=== PATIENT | female | born 1975 | race Caucasian/White ===

== ENCOUNTER 2016-10-30 03:23 | Emergency (ER) | payer MEDICAID ==
[~2016-10-30] VITALS: Ht 170.2 cm; Wt 74.7 kg
[~2016-10-30 03:23] MED LIST: ARIP2TAB PO; ARIP30TA PO; DIAZ2TAB PO; HYDR-3240 PO; LORA0.5T PO; SERT25TA PO; TOPI25CA5 PO; ZIPR20CA2 PO
[2016-10-30] MEDS ORDERED: HYDROmorphone 1 MG/ML, 1ML ONE (04:28)
[2016-10-30] MEDS ORDERED: ONDANSETRON 2MG/ML, 2ML ONE (04:29)
[2016-10-30] MEDS ORDERED: MORPHINE SULFATE 4 MG/ML, 1ML IVPush PRN (04:30)
[2016-10-30] MEDS ORDERED: ONDANSETRON 2MG/ML, 2ML IVPush ONE (04:30)
[2016-10-30] MEDS ORDERED: SODIUM CHLORIDE 0.9% 1,000ML IVBOLUS ONE (04:30)
[2016-10-30 04:40] LABS: HEMOGLOBIN 14.7 g/dL (11.7-16.4)
[2016-10-30 04:49] LABS: BLOOD UREA NITROGEN 16 mg/dL (7-18)
[2016-10-30 04:53] LABS: ASPARTATE AMINO TRANSFERASE 11 U/L (15-37)
[2016-10-30] MEDS ORDERED: HYDROmorphone 1 MG/ML, 1ML IM ONE (05:00)
[2016-10-30 05:28] LABS: DAU SCREEN DISCLAIMER
[2016-10-30] MEDS ORDERED: OXYcodone/APAP 5/325MG TABLET ONE (05:31)
[2016-10-30] MEDS ORDERED: ONDANSETRON ODT 4 MG ONE (05:33)
[2016-10-30 05:38] LABS: HCG UR OBC PASS
[2016-10-30 05:47] VITALS: BP 112/67
[2016-10-30] MEDS ORDERED: ONDANSETRON ODT 4 MG PO ONE (06:30)
[2016-10-30] MEDS ORDERED: OXYcodone/APAP 5/325MG TABLET PO ONE (06:30)
[2016-11-02] MEDS ORDERED: Oxycodone Hcl/Acetaminophen PO (09:22)
[2016-11-02] MEDS ORDERED: ONDA4TAB10 PO (09:22)
[2016-11-02] MEDS ORDERED: SULF1TAB24 PO (12:11)
== END 2016-10-30 06:19 | disposition home or self-care (01) ==
LOC: ED 04:45
DX: K80.20 Calculus of gallbladder without cholecystitis without obstruction (principal); K80.50 Calculus of bile duct without cholangitis or cholecystitis without obstruction; F12.10 Cannabis abuse, uncomplicated; E11.9 Type 2 diabetes mellitus without complications; Z98.890 Other specified postprocedural states
CPT/HCPCS: 36415; 76700; 80053; 80307; 81001; 81025; 83690; 85025; 87086; 96372; 96374; 99285; J1170; J2405; Q0162

== ENCOUNTER 2016-12-07 09:46 | Emergency (ER) | payer MEDICAID ==
[~2016-12-07] VITALS: Ht 165.1 cm; Wt 75.8 kg
[~2016-12-07 09:46] MED LIST changes: +ONDA4TAB10 PO; +Oxycodone Hcl/Acetaminophen PO; +SULF1TAB24 PO
[2016-12-07] MEDS ORDERED: SODIUM CHLORIDE 0.9% 1,000 ML IV ONE (11:13)
[2016-12-07] MEDS ORDERED: ONDANSETRON 2MG/ML, 2ML IVPush ONE (11:30)
[2016-12-07] MEDS ORDERED: SODIUM CHLORIDE FLUSH 10ML SYR IVF ONE (11:30)
[2016-12-07] MEDS ORDERED: HYDROmorphone 1 MG/ML, 1ML ONE ×2 (11:39→12:18)
[2016-12-07] MEDS ORDERED: ONDANSETRON 2MG/ML, 2ML ONE (11:39)
[2016-12-07] MEDS: HYDROmorphone 1 MG/ML, 1ML IVPush PRN ×2 (11:47→12:20)
[2016-12-07 11:49] LABS: ASPARTATE AMINO TRANSFERASE 5 U/L (15-37); BLOOD UREA NITROGEN 12 mg/dL (7-18)
[2016-12-07 12:21] VITALS: BP 111/73
[2016-12-07] MEDS ORDERED: OMNIPAQUE 350 MG/ML, 100ML BOTTLE ONE (12:50)
== END 2016-12-07 13:45 | disposition home or self-care (01) ==
LOC: ED 13:43
DX: N30.00 Acute cystitis without hematuria (principal); E11.9 Type 2 diabetes mellitus without complications; Z90.49 Acquired absence of other specified parts of digestive tract; Z88.0 Allergy status to penicillin; Z88.8 Allergy status to other drugs, medicaments and biological substances
CPT/HCPCS: 36415; 74177; 80053; 81001; 83690; 85025; 87086; 96361; 96374; 96375; 96376; 99285; J1170; J2405; J7030; Q9967

== ENCOUNTER 2017-02-05 18:30 | Emergency (ER) | payer MEDICAID ==
[~2017-02-05] VITALS: Ht 167.6 cm; Wt 72.0 kg
[2017-02-05] MEDS ORDERED: ACETAMINOPHEN 325 MG TABLET ONE (18:59)
[2017-02-05] MEDS ORDERED: ONDANSETRON ODT 4 MG ONE (18:59)
[2017-02-05] MEDS ORDERED: ONDANSETRON ODT 4 MG PO ONE (19:00)
[2017-02-05] MEDS ORDERED: ACETAMINOPHEN 325 MG TABLET PO ONE (19:00)
[2017-02-05] MEDS ORDERED: PLEASE ENTER HEIGHT AND WEIGHT MC SCH (19:00)
[2017-02-05 19:02] LABS: BLOOD UREA NITROGEN 19 mg/dL (7-18)
[2017-02-05] MEDS ORDERED: OXYC60TA8 PO (19:09)
[2017-02-05] MEDS ORDERED: ZIPR40CA2 PO (19:10)
[2017-02-05 19:16] LABS: DAU SCREEN DISCLAIMER
[2017-02-05] MEDS ORDERED: CEFTRIAXONE 1,000 MG ONE (20:25)
[2017-02-05 20:30] VITALS: BP 113/67
[2017-02-05] MEDS ORDERED: CEFTRIAXONE 1,000 MG IM ONE (20:30)
== END 2017-02-05 21:20 | disposition home or self-care (01) ==
LOC: ED 20:50
DX: N30.90 Cystitis, unspecified without hematuria (principal); N20.0 Calculus of kidney; E11.9 Type 2 diabetes mellitus without complications; G40.909 Epilepsy, unspecified, not intractable, without status epilepticus
CPT/HCPCS: 36415; 74000; 76770; 80048; 80307; 81001; 82040; 84703; 85025; 87086; 96372; 99285; J0696; Q0162

== ENCOUNTER 2017-02-12 22:14 | Emergency (ER) | payer MEDICAID ==
[~2017-02-12] VITALS: Ht 162.6 cm; Wt 68.0 kg
[~2017-02-12 22:14] MED LIST changes: +OXYC60TA8 PO; +ZIPR40CA2 PO
[2017-02-12 22:18] VITALS: BP 112/67
[2017-02-12] MEDS ORDERED: ONDANSETRON 2MG/ML, 2ML IVPush ONE (22:30)
[2017-02-12] MEDS ORDERED: MORPHINE SULFATE 4 MG/ML, 1ML IVPush PRN (22:30)
[2017-02-12 22:49] LABS: BLOOD UREA NITROGEN 18 mg/dL (7-18)
[2017-02-12 22:53] LABS: IS PT STATUS REG ER OR PRE ER? YES
[2017-02-12] MEDS ORDERED: COLCHICINE 0.6 MG TABLET PO ONE (23:00)
[2017-02-12] MEDS ORDERED: OXYcodone/APAP 5/325MG TABLET PO ONE (23:00)
[2017-02-12] MEDS ORDERED: OXYcodone/APAP 5/325MG TABLET ONE (23:02)
== END 2017-02-13 00:10 | disposition home or self-care (01) ==
LOC: ED 23:58
DX: R09.1 Pleurisy (principal); E11.9 Type 2 diabetes mellitus without complications; I25.10 Atherosclerotic heart disease of native coronary artery without angina pectoris; Z86.718 Personal history of other venous thrombosis and embolism; Z90.49 Acquired absence of other specified parts of digestive tract
CPT/HCPCS: 36415; 71020; 80048; 82040; 84484; 84703; 85025; 85379; 93005

== ENCOUNTER 2017-02-17 18:32 | Emergency (ER) | payer MEDICAID ==
[~2017-02-17] VITALS: Ht 167.6 cm; Wt 75.1 kg
[2017-02-17 18:35] VITALS: BP 99/63
== END 2017-02-17 19:16 | disposition home or self-care (01) ==
LOC: ED 19:10
DX: R07.0 Pain in throat (principal); Z88.0 Allergy status to penicillin; G40.909 Epilepsy, unspecified, not intractable, without status epilepticus; E11.9 Type 2 diabetes mellitus without complications
CPT/HCPCS: 99283

== ENCOUNTER 2017-04-13 15:25 | Emergency (ER) | payer MEDICAID ==
[~2017-04-13] VITALS: Ht 170.2 cm; Wt 75.0 kg
[~2017-04-13 15:25] MED LIST changes: -ARIP2TAB PO; +ARIP2TAB2 PO; -ARIP30TA PO; +ARIP30TA4 PO
[2017-04-13] MEDS ORDERED: METHOCARBAMOL 750 MG TABLET ONE (15:59)
[2017-04-13] MEDS ORDERED: HYDROcodone/APAP 5/325 TABLET ONE (15:59)
[2017-04-13] MEDS ORDERED: HYDROcodone/APAP 5/325 TABLET PO ONE (16:00)
[2017-04-13] MEDS ORDERED: METHOCARBAMOL 750 MG TABLET PO ONE (16:00)
[2017-04-13 17:17] LABS: HEMATOCRIT 42.9 % (34.6-47.8); HEMOGLOBIN 14.3 g/dL (11.7-16.4); WHITE BLOOD COUNT 9.8 x10^3/uL (3.4-10)
[2017-04-13 17:21] LABS: PATH.CAST-FLAG NOT PRESENT; SPERM-FLAG NOT PRESENT; SRC-FLAG NOT PRESENT; XTAL-FLAG NOT PRESENT; YLC-FLAG NOT PRESENT
[2017-04-13 17:27] LABS: BLOOD UREA NITROGEN 12 mg/dL (7-18)
[2017-04-13 18:25] VITALS: BP 120/80
== END 2017-04-13 19:30 | disposition home or self-care (01) ==
LOC: ED 17:38
DX: N30.01 Acute cystitis with hematuria (principal); E11.9 Type 2 diabetes mellitus without complications; F31.9 Bipolar disorder, unspecified; Z90.49 Acquired absence of other specified parts of digestive tract; Z88.0 Allergy status to penicillin; Z88.6 Allergy status to analgesic agent
CPT/HCPCS: 36415; 72110; 80048; 81001; 85025; 87086; 99285

== ENCOUNTER 2017-05-18 17:51 | Emergency (ER) | payer MEDICAID ==
[~2017-05-18] VITALS: Ht 170.2 cm; Wt 78.2 kg
[2017-05-18] MEDS ORDERED: TRAZ100T15 PO (18:15)
[2017-05-18] MEDS ORDERED: TOPI25CA5 PO (18:15)
[2017-05-18] MEDS ORDERED: GABA-827 PO (18:15)
[2017-05-18 19:52] VITALS: BP 101/51
[2017-05-18] MEDS ORDERED: ACETAMINOPHEN 325 MG TABLET ONE (20:16)
[2017-05-18] MEDS ORDERED: ACETAMINOPHEN 325 MG TABLET PO ONE (20:30)
== END 2017-05-18 20:37 | disposition home or self-care (01) ==
LOC: ED 19:00
DX: M25.521 Pain in right elbow (principal); F15.20 Other stimulant dependence, uncomplicated; G40.909 Epilepsy, unspecified, not intractable, without status epilepticus; F31.9 Bipolar disorder, unspecified
CPT/HCPCS: 82962; 99284

== ENCOUNTER 2017-05-20 13:56 | Inpatient (IN) | payer MEDICAID ==
[~2017-05-20] VITALS: Ht 162.6 cm; Wt 81.0 kg
[~2017-05-20 13:56] MED LIST changes: +GABA-827 PO; +TRAZ100T15 PO
[2017-05-20] MEDS ORDERED: CEFTRIAXONE PMX 1GM/50ML 50 ML IVPB ONE (14:30)
[2017-05-20] MEDS ORDERED: VANCOMYCIN PER PHARMACY MC ONE (14:30)
[2017-05-20] MEDS ORDERED: MORPHINE SULFATE 4 MG/ML, 1ML IVPush PRN (14:30)
[2017-05-20] MEDS ORDERED: SODIUM CHLORIDE 0.9% 1,000ML IVBOLUS ONE ×2 (14:30→19:00)
[2017-05-20] MEDS ORDERED: SODIUM CHLORIDE FLUSH 10ML SYR IVF ONE (14:30)
[2017-05-20] MEDS ORDERED: ACETAMINOPHEN 500 MG TABLET PO ONE (14:30)
[2017-05-20] MEDS ORDERED: VANCOMYCIN 1,500 MG in SODIUM CHLORIDE 0.9% 250 ML IV ONE (15:00)
[2017-05-20 15:47] LABS: HEMATOCRIT 43.8 % (34.6-47.8); HEMOGLOBIN 14.6 g/dL (11.7-16.4); WHITE BLOOD COUNT 10.4 x10^3/uL (3.4-10)
[2017-05-20] MEDS ORDERED: ACETAMINOPHEN 500 MG TABLET ONE (15:48)
[2017-05-20] MEDS ORDERED: CEFTRIAXONE PMX 1GM/50ML 50 ML ONE (15:48)
[2017-05-20 15:55] LABS: ASPARTATE AMINO TRANSFERASE 23 U/L (15-37); BLOOD UREA NITROGEN 15 mg/dL (7-18)
[2017-05-20] MEDS ORDERED: ONDANSETRON 2MG/ML, 2ML ONE (16:02)
[2017-05-20] MEDS ORDERED: morphine SULFATE 10 MG/ML, 1ML ONE ×2 (16:02→18:53)
[2017-05-20] MEDS ORDERED: ONDANSETRON 2MG/ML, 2ML IVPush ONE (16:30)
[2017-05-20] MEDS ORDERED: OMNIPAQUE 350 MG/ML, 100ML BOTTLE ONE (18:26)
[2017-05-20] MEDS ORDERED: morphine SULFATE 10 MG/ML, 1ML IVPush ONE (19:00)
[2017-05-20] MEDS ORDERED: VANCOMYCIN PER PHARMACY MC SCH (19:30)
[2017-05-20] MEDS ORDERED: ACETAMINOPHEN 325 MG TABLET PO PRN (19:30)
[2017-05-20] MEDS ORDERED: hydrALAzine 20 MG/ML, 1ML IVPush PRN (19:30)
[2017-05-20] MEDS ORDERED: PHARMACOKINETIC MONITORING MC PRN (21:00)
[2017-05-20] MEDS ORDERED: PHARMACOKINETIC CONSULTATION MC ONE (21:00)
[2017-05-20 21:33] VITALS: BP 112/76
[2017-05-20] MEDS ORDERED: HYDROmorphone 1 MG/ML, 1ML ONE (22:14)
[2017-05-20] MEDS: SODIUM CHLORIDE FLUSH 10ML SYR IVF SCH (22:20)
[2017-05-20] MEDS: HYDROmorphone 2 MG/ML, 1ML IVPush PRN (22:21)
[2017-05-20] MEDS: TRAZODONE 100MG TABLET PO SCH (22:21)
[2017-05-20] MEDS: ZIPRASIDONE 40MG CAPSULE PO SCH (22:22)
[2017-05-20] MEDS: ENOXAPARIN 40 MG/0.4 ML SQ SCH (22:22)
[2017-05-21 02:03] VITALS: BP 95/62
[2017-05-21] MEDS: VANCOMYCIN 1,500 MG in SODIUM CHLORIDE 0.9% 250 ML IV SCH ×2 (05:02→17:13)
[2017-05-21] MEDS ORDERED: HYDROmorphone 1 MG/ML, 1ML ONE ×3 (05:15→19:48)
[2017-05-21] MEDS: HYDROmorphone 2 MG/ML, 1ML IVPush PRN ×5 (05:19→21:45)
[2017-05-21 07:10] LABS: HEMATOCRIT 33.6 % (34.6-47.8); HEMOGLOBIN 11.3 g/dL (11.7-16.4); WHITE BLOOD COUNT 5.3 x10^3/uL (3.4-10)
[2017-05-21 07:13] LABS: BLOOD UREA NITROGEN 8 mg/dL (7-18)
[2017-05-21 08:00] VITALS: BP 101/67
[2017-05-21] MEDS: PANTOPRAZOLE 40 MG IV IVPush SCH (08:31)
[2017-05-21] MEDS: SODIUM CHLORIDE FLUSH 10ML SYR IVF SCH ×2 (08:32→21:46)
[2017-05-21] MEDS: ZIPRASIDONE 40MG CAPSULE PO SCH ×2 (08:32→21:44)
[2017-05-21 15:12] VITALS: BP 89/60
[2017-05-21] MEDS ORDERED: TOPI25CA PO (19:03)
[2017-05-21 20:00] VITALS: BP 97/64
[2017-05-21] MEDS: TOPIRAMATE 25 MG TABLET PO SCH (21:44)
[2017-05-21] MEDS: TRAZODONE 100MG TABLET PO SCH (21:44)
[2017-05-21] MEDS: ENOXAPARIN 40 MG/0.4 ML SQ SCH (21:46)
[2017-05-21] MEDS: ONDANSETRON 2MG/ML, 2ML IVPush PRN (21:52)
[2017-05-22] MEDS ORDERED: HYDROmorphone 1 MG/ML, 1ML ONE ×6 (01:53→21:52)
[2017-05-22] MEDS: HYDROmorphone 2 MG/ML, 1ML IVPush PRN ×6 (01:58→22:11)
[2017-05-22 02:00] VITALS: BP 110/72
[2017-05-22] MEDS: VANCOMYCIN 1,500 MG in SODIUM CHLORIDE 0.9% 250 ML IV SCH (05:03)
[2017-05-22 05:36] LABS: BLOOD UREA NITROGEN 5 mg/dL (7-18)
[2017-05-22 05:42] LABS: HEMATOCRIT 33.8 % (34.6-47.8); HEMOGLOBIN 11.4 g/dL (11.7-16.4); WHITE BLOOD COUNT 8.1 x10^3/uL (3.4-10)
[2017-05-22 08:11] VITALS: BP 88/59
[2017-05-22 09:37] VITALS: BP 97/63
[2017-05-22] MEDS: PANTOPRAZOLE 40 MG IV IVPush SCH (10:10)
[2017-05-22] MEDS: SODIUM CHLORIDE FLUSH 10ML SYR IVF SCH ×2 (10:10→21:56)
[2017-05-22] MEDS: TOPIRAMATE 25 MG TABLET PO SCH ×2 (10:11→21:56)
[2017-05-22] MEDS: ZIPRASIDONE 40MG CAPSULE PO SCH ×2 (10:11→21:56)
[2017-05-22] MEDS: ARIPIPRAZOLE 15 MG TABLET PO SCH (10:11)
[2017-05-22] MEDS: CEFTAROLINE 600 MG in SODIUM CHLORIDE 0.9% 100 ML IV SCH ×2 (11:37→23:39)
[2017-05-22] MEDS: METRONIDAZOLE PMX 500MG/100ML 100 ML IV SCH ×2 (14:58→22:00)
[2017-05-22] MEDS: ONDANSETRON 2MG/ML, 2ML IVPush PRN (14:58)
[2017-05-22 18:10] VITALS: BP 94/61
[2017-05-22 19:53] VITALS: BP 97/59
[2017-05-22] MEDS: ENOXAPARIN 40 MG/0.4 ML SQ SCH (21:56)
[2017-05-22] MEDS: TRAZODONE 100MG TABLET PO SCH (21:56)
[2017-05-23] MEDS ORDERED: HYDROmorphone 1 MG/ML, 1ML ONE ×6 (01:46→22:15)
[2017-05-23] MEDS: LORazepam 2 MG/ML, 1ML IVPush PRN ×2 (01:53→05:47)
[2017-05-23] MEDS: HYDROmorphone 2 MG/ML, 1ML IVPush PRN ×5 (02:11→22:23)
[2017-05-23 02:18] VITALS: BP 92/59
[2017-05-23] MEDS: METRONIDAZOLE PMX 500MG/100ML 100 ML IV SCH ×2 (05:48→17:08)
[2017-05-23] MEDS: PANTOPRAZOLE 40 MG IV IVPush SCH (07:47)
[2017-05-23] MEDS: SODIUM CHLORIDE FLUSH 10ML SYR IVF SCH ×2 (07:47→22:28)
[2017-05-23] MEDS: TOPIRAMATE 25 MG TABLET PO SCH ×2 (07:48→22:20)
[2017-05-23] MEDS: ARIPIPRAZOLE 15 MG TABLET PO SCH (07:48)
[2017-05-23] MEDS: ZIPRASIDONE 40MG CAPSULE PO SCH ×2 (07:48→22:20)
[2017-05-23 08:06] VITALS: BP 102/70
[2017-05-23] MEDS: CEFTAROLINE 600 MG in SODIUM CHLORIDE 0.9% 100 ML IV SCH ×2 (11:27→14:20)
[2017-05-23 13:59] VITALS: BP 91/56
[2017-05-23 19:09] VITALS: BP 104/69
[2017-05-23] MEDS: ENOXAPARIN 40 MG/0.4 ML SQ SCH (21:00)
[2017-05-23] MEDS: TRAZODONE 100MG TABLET PO SCH (22:20)
[2017-05-24] MEDS: METRONIDAZOLE PMX 500MG/100ML 100 ML IV SCH ×3 (01:10→17:35)
[2017-05-24] MEDS ORDERED: HYDROmorphone 1 MG/ML, 1ML ONE ×2 (02:28→08:51)
[2017-05-24] MEDS: HYDROmorphone 2 MG/ML, 1ML IVPush PRN ×4 (02:33→17:34)
[2017-05-24] MEDS: CEFTAROLINE 600 MG in SODIUM CHLORIDE 0.9% 100 ML IV SCH ×2 (02:34→15:39)
[2017-05-24 02:53] VITALS: BP 82/53
[2017-05-24 03:21] VITALS: BP 108/69
[2017-05-24 08:34] VITALS: BP 98/68
[2017-05-24] MEDS: SODIUM CHLORIDE FLUSH 10ML SYR IVF SCH ×2 (09:00→21:44)
[2017-05-24] MEDS: PANTOPRAZOLE 40 MG IV IVPush SCH (09:12)
[2017-05-24] MEDS: ARIPIPRAZOLE 15 MG TABLET PO SCH (09:18)
[2017-05-24] MEDS: ZIPRASIDONE 40MG CAPSULE PO SCH ×2 (09:20→21:44)
[2017-05-24] MEDS: TOPIRAMATE 25 MG TABLET PO SCH ×2 (09:22→21:43)
[2017-05-24 14:00] VITALS: BP 88/54
[2017-05-24 17:33] VITALS: BP 100/66
[2017-05-24 19:26] VITALS: BP 99/65
[2017-05-24] MEDS: ENOXAPARIN 40 MG/0.4 ML SQ SCH (21:00)
[2017-05-24] MEDS: TRAZODONE 100MG TABLET PO SCH (21:44)
[2017-05-25] MEDS: HYDROmorphone 2 MG/ML, 1ML IVPush PRN ×3 (01:38→14:01)
[2017-05-25] MEDS: METRONIDAZOLE PMX 500MG/100ML 100 ML IV SCH ×3 (01:39→17:00)
[2017-05-25] MEDS: CEFTAROLINE 600 MG in SODIUM CHLORIDE 0.9% 100 ML IV SCH ×2 (03:35→16:28)
[2017-05-25 03:45] VITALS: BP 79/52
[2017-05-25] MEDS: SODIUM CHLORIDE 0.9% 1,000 ML IV SCH ×2 (06:42→13:10)
[2017-05-25 07:58] VITALS: BP 94/63
[2017-05-25] MEDS: TOPIRAMATE 25 MG TABLET PO SCH ×2 (08:54→20:49)
[2017-05-25] MEDS: ZIPRASIDONE 40MG CAPSULE PO SCH ×2 (08:54→20:56)
[2017-05-25] MEDS: SODIUM CHLORIDE FLUSH 10ML SYR IVF SCH ×2 (08:54→20:56)
[2017-05-25] MEDS: ARIPIPRAZOLE 15 MG TABLET PO SCH (08:54)
[2017-05-25] MEDS: PANTOPRAZOLE 40 MG IV IVPush SCH (08:55)
[2017-05-25 13:50] VITALS: BP 103/66
[2017-05-25] MEDS: HYDROcodone/APAP 5/325 TABLET PO PRN ×2 (16:25→20:49)
[2017-05-25] MEDS ORDERED: PNEUMOCOCCAL 23 VACCINE IM-VACC ONE (19:00)
[2017-05-25] MEDS ORDERED: FLU VACC QS2017-18 (36MOS+) UP/PF 0.5 ML IM-VACC ONE (19:00)
[2017-05-25 19:15] VITALS: BP 91/59
[2017-05-25] MEDS: TRAZODONE 100MG TABLET PO SCH (20:49)
[2017-05-25] MEDS: ENOXAPARIN 40 MG/0.4 ML SQ SCH (20:49)
[2017-05-25 21:00] VITALS: BP 98/65
[2017-05-26] MEDS: METRONIDAZOLE PMX 500MG/100ML 100 ML IV SCH ×3 (01:26→17:00)
[2017-05-26] MEDS: CEFTAROLINE 600 MG in SODIUM CHLORIDE 0.9% 100 ML IV SCH ×2 (02:44→13:16)
[2017-05-26 02:46] VITALS: BP 98/62
[2017-05-26 05:04] LABS: WHITE BLOOD COUNT 7.7 x10^3/uL (3.4-10)
[2017-05-26 05:14] LABS: BLOOD UREA NITROGEN 19 mg/dL (7-18)
[2017-05-26] MEDS: HYDROcodone/APAP 5/325 TABLET PO PRN ×3 (05:16→17:15)
[2017-05-26 08:00] VITALS: BP 97/62
[2017-05-26] MEDS: PANTOPRAZOLE 40 MG IV IVPush SCH (08:41)
[2017-05-26] MEDS: ARIPIPRAZOLE 15 MG TABLET PO SCH (08:42)
[2017-05-26] MEDS: ZIPRASIDONE 40MG CAPSULE PO SCH (08:42)
[2017-05-26] MEDS: SODIUM CHLORIDE FLUSH 10ML SYR IVF SCH (08:42)
[2017-05-26] MEDS: TOPIRAMATE 25 MG TABLET PO SCH (08:42)
[2017-05-26 13:43] VITALS: BP 104/65
[2017-05-26 14:00] VITALS: BP 104/65
[2017-05-26] MEDS ORDERED: CLIN300C8 PO (17:19)
== END 2017-05-26 18:10 | disposition home or self-care (01) | DRG 872 ==
LOC: ED 14:36 → EDIP 19:12 → 3NE 20:25
PROVIDERS: ADMIT Internal Medicine; ATTEND Internal Medicine
DX: A41.9 Sepsis, unspecified organism (principal); D64.9 Anemia, unspecified; E11.9 Type 2 diabetes mellitus without complications; F19.10 Other psychoactive substance abuse, uncomplicated; F31.9 Bipolar disorder, unspecified; L02.413 Cutaneous abscess of right upper limb; L03.113 Cellulitis of right upper limb; G40.909 Epilepsy, unspecified, not intractable, without status epilepticus; N83.209 Unspecified ovarian cyst, unspecified side; Z72.0 Tobacco use; Z87.442 Personal history of urinary calculi; Z71.6 Tobacco abuse counseling; Z88.0 Allergy status to penicillin
CPT/HCPCS: 36415; 80048; 80053; 83036; 83605; 83735; 85025; 87040; 90686; 90732; 93306; 96365; 96366; 96367; 96375; 96376; J0696; J0712; J1170; J1650; J2405; J3370; Q9967; C9113; J2060; J2270; J7030; J7050

== ENCOUNTER 2017-06-16 19:14 | Emergency (ER) | payer MEDICAID ==
[~2017-06-16] VITALS: Ht 162.6 cm; Wt 78.5 kg
[~2017-06-16 19:14] MED LIST changes: +CLIN300C8 PO; +TOPI25CA PO
[2017-06-16] MEDS ORDERED: ONDANSETRON ODT 4 MG ONE (19:28)
[2017-06-16 20:21] LABS: HEMATOCRIT 39.8 % (34.6-47.8); HEMOGLOBIN 13.4 g/dL (11.7-16.4); WHITE BLOOD COUNT 7.3 x10^3/uL (3.4-10)
[2017-06-16 20:31] LABS: BLOOD UREA NITROGEN 20 mg/dL (7-18)
[2017-06-16] MEDS ORDERED: ONDANSETRON ODT 4 MG PO ONE (21:00)
[2017-06-16 21:02] VITALS: BP 114/57
== END 2017-06-16 21:04 | disposition home or self-care (01) ==
LOC: ED 20:58
DX: E86.0 Dehydration (principal); R04.0 Epistaxis
CPT/HCPCS: 36415; 80048; 83690; 85025; 93005; 99285; Q0162

== ENCOUNTER 2017-06-28 09:54 | Emergency (ER) | payer MEDICAID ==
[~2017-06-28] VITALS: Ht 162.6 cm; Wt 74.0 kg
[2017-06-28] MEDS ORDERED: CARB200T PO (10:46)
[2017-06-28] MEDS ORDERED: ONDANSETRON 2MG/ML, 2ML IVPush ONE (11:00)
[2017-06-28] MEDS ORDERED: SODIUM CHLORIDE FLUSH 10ML SYR IVF ONE (11:00)
[2017-06-28] MEDS ORDERED: HYDROmorphone 1 MG/ML, 1ML ONE ×3 (11:07→13:34)
[2017-06-28] MEDS ORDERED: ONDANSETRON 2MG/ML, 2ML ONE (11:08)
[2017-06-28] MEDS: HYDROmorphone 1 MG/ML, 1ML IVPush PRN ×2 (11:18→12:15)
[2017-06-28] MEDS ORDERED: SODIUM CHLORIDE 0.9% 1,000 ML IV ONE (11:34)
[2017-06-28 11:35] LABS: HEMATOCRIT 41.6 % (34.6-47.8); HEMOGLOBIN 14.1 g/dL (11.7-16.4); WHITE BLOOD COUNT 14.2 x10^3/uL (3.4-10)
[2017-06-28 11:44] LABS: ASPARTATE AMINO TRANSFERASE 9 U/L (15-37); BLOOD UREA NITROGEN 14 mg/dL (7-18)
[2017-06-28] MEDS ORDERED: SODIUM CHLORIDE 0.9% 1,000ML IVBOLUS ONE (12:00)
[2017-06-28] MEDS ORDERED: NITROFURANTOIN (MACROBID) 100 MG CAPSULE PO ONE (13:30)
[2017-06-28 13:40] VITALS: BP 108/66
[2017-06-28] MEDS ORDERED: HYDROmorphone 1 MG/ML, 1ML IVPush PRN (14:00)
== END 2017-06-28 14:19 | disposition home or self-care (01) ==
LOC: ED 14:13
DX: N30.00 Acute cystitis without hematuria (principal); E11.9 Type 2 diabetes mellitus without complications; F31.9 Bipolar disorder, unspecified; G40.909 Epilepsy, unspecified, not intractable, without status epilepticus; Z87.442 Personal history of urinary calculi
CPT/HCPCS: 36415; 74176; 80053; 81001; 83690; 84703; 85025; 87077; 87086; 87186; 96361; 96374; 96375; 96376; 99285; J1170; J2405; J7030

== ENCOUNTER 2017-07-07 15:10 | Emergency (ER) | payer MEDICAID ==
[~2017-07-07] VITALS: Ht 162.6 cm; Wt 81.0 kg
[~2017-07-07 15:10] MED LIST changes: +CARB200T PO
[2017-07-07] MEDS ORDERED: ONDANSETRON 2MG/ML, 2ML IVPush ONE (16:00)
[2017-07-07] MEDS ORDERED: SODIUM CHLORIDE FLUSH 10ML SYR IVF ONE (16:00)
[2017-07-07] MEDS ORDERED: SODIUM CHLORIDE 0.9% 1,000ML IVBOLUS ONE (16:00)
[2017-07-07 16:18] LABS: HEMATOCRIT 43.1 % (34.6-47.8); HEMOGLOBIN 14.2 g/dL (11.7-16.4); WHITE BLOOD COUNT 10.3 x10^3/uL (3.4-10)
[2017-07-07 16:21] LABS: BLOOD UREA NITROGEN 16 mg/dL (7-18)
[2017-07-07 17:02] LABS: HCG UR LOT HCG7030192
[2017-07-07 17:34] LABS: HCG UR OBC PASS
[2017-07-07] MEDS ORDERED: ONDANSETRON 2MG/ML, 2ML ONE (18:13)
[2017-07-07] MEDS ORDERED: HYDROmorphone 2 MG/ML, 1ML ONE ×2 (19:39→20:20)
[2017-07-07] MEDS: HYDROmorphone 1 MG/ML, 1ML IVPush PRN ×2 (19:43→20:26)
[2017-07-07 20:26] VITALS: BP 106/74
[2017-07-07] MEDS ORDERED: CIPROFLOXACIN/PMX 400MG/200ML 200 ML IV ONE (20:30)
[2017-07-07] MEDS ORDERED: CIPROFLOXACIN/PMX 400MG/200ML 200 ML ONE (20:32)
== END 2017-07-07 21:44 | disposition home or self-care (01) ==
LOC: ED 18:14
DX: N30.00 Acute cystitis without hematuria (principal); Z90.49 Acquired absence of other specified parts of digestive tract; F17.200 Nicotine dependence, unspecified, uncomplicated; E11.9 Type 2 diabetes mellitus without complications; G40.909 Epilepsy, unspecified, not intractable, without status epilepticus
CPT/HCPCS: 36415; 80048; 81001; 81025; 82040; 85025; 87077; 87086; 87186; 96361; 96365; 96375; 96376; 99285; J0744; J1170; J2405; J7030

== ENCOUNTER 2017-07-26 03:03 | Emergency (ER) | payer MEDICAID ==
[~2017-07-26] VITALS: Ht 132.1 cm; Wt 69.6 kg
[2017-07-26 03:07] VITALS: BP 123/84
[2017-07-26] MEDS ORDERED: DIAZEPAM 5 MG TABLET ONE (03:46)
[2017-07-26] MEDS ORDERED: KETOROLAC 30 MG/1 ML ONE (03:46)
[2017-07-26] MEDS ORDERED: DIAZEPAM 5 MG TABLET PO ONE (04:00)
[2017-07-26] MEDS ORDERED: KETOROLAC 30 MG/1 ML IM ONE (04:00)
== END 2017-07-26 04:36 | disposition home or self-care (01) ==
LOC: ED 04:25
DX: S39.012A Strain of muscle, fascia and tendon of lower back, initial encounter (principal); M54.16 Radiculopathy, lumbar region; X58.XXXA Exposure to other specified factors, initial encounter; Y93.89 Activity, other specified; Y92.89 Other specified places as the place of occurrence of the external cause; Y99.8 Other external cause status
CPT/HCPCS: 96372; 99283; J1885

== ENCOUNTER 2017-08-01 06:15 | Emergency (ER) | payer MEDICAID ==
[~2017-08-01] VITALS: Ht 162.6 cm; Wt 71.0 kg
[2017-08-01] MEDS ORDERED: CARBAMAZEPINE 200 MG TABLET PO ONE (06:30)
[2017-08-01 06:55] LABS: BASOPHILS # (AUTO) 0.03 x10^3/uL (0-0.1); BASOPHILS % (AUTO) 0 % (0-1); EOSINOPHILS # (AUTO) 0.24 x10^3/uL (0-0.4); EOSINOPHILS % (AUTO) 3 % (1-7); LYMPHOCYTES # (AUTO) 2.54 x10^3/uL (1-3.4); LYMPHOCYTES % (AUTO) 33 % (22-44); MD NO; MEAN CORPUSCULAR HEMOGLOBIN 29.4 pg (27.0-34.8); MEAN CORPUSCULAR HGB CONC 33.1 g/dL (32.4-35.8); MEAN CORPUSCULAR VOLUME 88.8 fL (80-100); MEAN PLATELET VOLUME 7.7 fL (7.4-10.4); MONOCYTES % (AUTO) 8 % (2-9); NEUTROPHILS % (AUTO) 56 % (42-75); PLATELET COUNT 287 x10^3/uL (130-400); RED BLOOD COUNT 4.92 x10^6/uL (3.82-5.3); RED CELL DISTRIBUTION WIDTH 14.9 % (9.6-15.2)
[2017-08-01 07:05] LABS: ALBUMIN 4.1 g/dL (3.4-5.0); ANION GAP 6 mmol/L (5-15); CALCIUM 8.5 mg/dL (8.5-10.1); CHLORIDE 112 mmol/L (98-107); CREATININE 1.14 mg/dL (0.55-1.02)
[2017-08-01 08:18] VITALS: BP 120/74
== END 2017-08-01 08:46 | disposition home or self-care (01) ==
LOC: ED 07:14
DX: E11.649 Type 2 diabetes mellitus with hypoglycemia without coma (principal); F15.10 Other stimulant abuse, uncomplicated; R56.9 Unspecified convulsions
CPT/HCPCS: 36415; 80048; 82040; 82962; 84703; 85025; 99284

== ENCOUNTER 2017-08-25 19:57 | Emergency (ER) | payer MEDICAID ==
[~2017-08-25] VITALS: Ht 162.6 cm; Wt 85.0 kg
[2017-08-25 20:01] VITALS: BP 115/65
[2017-08-25] MEDS ORDERED: SODIUM CHLORIDE FLUSH 10ML SYR IVF ONE (21:00)
[2017-08-25] MEDS ORDERED: ONDANSETRON 2MG/ML, 2ML IVPush ONE (21:00)
[2017-08-25] MEDS ORDERED: SODIUM CHLORIDE 0.9% 1,000ML IV ONE (21:00)
[2017-08-25] MEDS ORDERED: KETOROLAC 30 MG/1 ML IVPush ONE (21:00)
[2017-08-25] MEDS ORDERED: ONDANSETRON 2MG/ML, 2ML ONE (21:07)
[2017-08-25] MEDS ORDERED: KETOROLAC 30 MG/1 ML ONE (21:07)
[2017-08-25 21:16] LABS: MICROSCOPIC AUTO
[2017-08-25 21:26] LABS: CULTURE INDICATED? YES
[2017-08-25 21:51] LABS: BASOPHILS # (AUTO) 0.18 x10^3/uL (0-0.1); BASOPHILS % (AUTO) 2 % (0-1); EOSINOPHILS # (AUTO) 0.17 x10^3/uL (0-0.4); EOSINOPHILS % (AUTO) 2 % (1-7); LYMPHOCYTES # (AUTO) 2.38 x10^3/uL (1-3.4); LYMPHOCYTES % (AUTO) 25 % (22-44); MD NO; MEAN CORPUSCULAR HEMOGLOBIN 29.2 pg (27.0-34.8); MEAN CORPUSCULAR VOLUME 88.6 fL (80-100); MEAN PLATELET VOLUME 7.5 fL (7.4-10.4); MONOCYTES # (AUTO) 0.84 x10^3/uL (0.2-0.8); MONOCYTES % (AUTO) 9 % (2-9); NEUTROPHILS # (AUTO) 6.02 x10^3/uL (1.8-6.8); NEUTROPHILS % (AUTO) 63 % (42-75); PLATELET COUNT 314 x10^3/uL (130-400); RED BLOOD COUNT 4.42 x10^6/uL (3.82-5.3); RED CELL DISTRIBUTION WIDTH 15.9 % (9.6-15.2)
[2017-08-25 21:59] LABS: ALANINE AMINOTRANSFERASE 20 U/L (12-78); ALBUMIN 3.4 g/dL (3.4-5.0); ANION GAP 9 mmol/L (5-15); CALCIUM 8.1 mg/dL (8.5-10.1); CHLORIDE 110 mmol/L (98-107); CREATININE 1.04 mg/dL (0.55-1.02)
[2017-08-25 22:01] LABS: ALKALINE PHOSPHATASE 109 U/L (45-117); BILIRUBIN,TOTAL 0.2 mg/dL (0.2-1.0); TOTAL PROTEIN 6.6 g/dL (6.4-8.2)
[2017-08-25 22:03] LABS: INTERNATIONAL NORMALIZED RATIO 0.98 (0.93-1.1); PROTHROMBIN TIME 10.2 Seconds (9.6-11.5)
== END 2017-08-25 22:48 | disposition home or self-care (01) ==
LOC: ED 22:03
DX: N10 Acute pyelonephritis (principal); E11.9 Type 2 diabetes mellitus without complications; G40.909 Epilepsy, unspecified, not intractable, without status epilepticus; F17.210 Nicotine dependence, cigarettes, uncomplicated; Z90.49 Acquired absence of other specified parts of digestive tract
CPT/HCPCS: 36415; 74018; 76770; 80053; 81001; 83690; 85025; 85610; 85730; 87077; 87086; 87147; 87186; 96361; 96374; 96375; 99285; J1885; J2405; J7030

== ENCOUNTER 2017-09-03 15:53 | Emergency (ER) | payer MEDICAID ==
[~2017-09-03] VITALS: Ht 162.6 cm; Wt 87.0 kg
[2017-09-03 16:12] VITALS: BP 117/62
[2017-09-03 16:34] LABS: BASOPHILS # (AUTO) 0.06 x10^3/uL (0-0.1); BASOPHILS % (AUTO) 1 % (0-1); EOSINOPHILS # (AUTO) 0.23 x10^3/uL (0-0.4); EOSINOPHILS % (AUTO) 3 % (1-7); LYMPHOCYTES % (AUTO) 38 % (22-44); MD NO; MEAN CORPUSCULAR HEMOGLOBIN 28.7 pg (27.0-34.8); MEAN CORPUSCULAR HGB CONC 32.9 g/dL (32.4-35.8); MEAN PLATELET VOLUME 7.2 fL (7.4-10.4); MONOCYTES % (AUTO) 7 % (2-9); NEUTROPHILS # (AUTO) 4.74 x10^3/uL (1.8-6.8); NEUTROPHILS % (AUTO) 52 % (42-75); PLATELET COUNT 332 x10^3/uL (130-400); RED BLOOD COUNT 4.76 x10^6/uL (3.82-5.3); RED CELL DISTRIBUTION WIDTH 14.7 % (9.6-15.2)
[2017-09-03 16:45] LABS: ALBUMIN 3.8 g/dL (3.4-5.0); ANION GAP 8 mmol/L (5-15); CALCIUM 9.1 mg/dL (8.5-10.1); CHLORIDE 111 mmol/L (98-107); CREATININE 1.22 mg/dL (0.55-1.02)
[2017-09-03 17:06] LABS: HCG UR SG 1.026 (1.003-1.030)
[2017-09-03 17:07] LABS: CULTURE INDICATED? YES; MICROSCOPIC INDICATED
== END 2017-09-03 17:53 | disposition home or self-care (01) ==
LOC: ED 16:29
DX: G40.909 Epilepsy, unspecified, not intractable, without status epilepticus (principal); F15.10 Other stimulant abuse, uncomplicated; Z90.49 Acquired absence of other specified parts of digestive tract; E11.9 Type 2 diabetes mellitus without complications; Z88.0 Allergy status to penicillin
CPT/HCPCS: 36415; 80048; 81001; 81025; 82040; 85025; 87086; 99284

== ENCOUNTER 2017-10-01 11:10 | Emergency (ER) | payer MEDICAID ==
[~2017-10-01] VITALS: Ht 167.6 cm; Wt 81.2 kg
[2017-10-01 11:36] VITALS: BP 106/73
[2017-10-01 12:25] LABS: CULTURE INDICATED? YES; MICROSCOPIC INDICATED
[2017-10-01 13:09] LABS: HCG UR SG 1.017 (1.003-1.030)
[2017-10-01 13:24] LABS: BASOPHILS # (AUTO) 0.13 x10^3/uL (0-0.1); BASOPHILS % (AUTO) 1 % (0-1); EOSINOPHILS # (AUTO) 0.24 x10^3/uL (0-0.4); EOSINOPHILS % (AUTO) 3 % (1-7); LYMPHOCYTES # (AUTO) 3.08 x10^3/uL (1-3.4); LYMPHOCYTES % (AUTO) 33 % (22-44); MD NO; MEAN CORPUSCULAR HEMOGLOBIN 29.1 pg (27.0-34.8); MEAN CORPUSCULAR HGB CONC 33.5 g/dL (32.4-35.8); MEAN CORPUSCULAR VOLUME 86.7 fL (80-100); MEAN PLATELET VOLUME 7.7 fL (7.4-10.4); MONOCYTES # (AUTO) 0.63 x10^3/uL (0.2-0.8); MONOCYTES % (AUTO) 7 % (2-9); NEUTROPHILS # (AUTO) 5.31 x10^3/uL (1.8-6.8); NEUTROPHILS % (AUTO) 57 % (42-75); PLATELET COUNT 284 x10^3/uL (130-400); RED BLOOD COUNT 4.86 x10^6/uL (3.82-5.3); RED CELL DISTRIBUTION WIDTH 14.7 % (9.6-15.2)
[2017-10-01 13:35] LABS: ALANINE AMINOTRANSFERASE 18 U/L (12-78); ALBUMIN 3.9 g/dL (3.4-5.0); ANION GAP 8 mmol/L (5-15); CALCIUM 8.7 mg/dL (8.5-10.1); CHLORIDE 110 mmol/L (98-107); CREATININE 1.13 mg/dL (0.55-1.02)
[2017-10-01 13:37] LABS: ALKALINE PHOSPHATASE 83 U/L (45-117); BILIRUBIN,TOTAL 0.6 mg/dL (0.2-1.0); TOTAL PROTEIN 7.5 g/dL (6.4-8.2)
== END 2017-10-01 14:30 | disposition home or self-care (01) ==
LOC: ED 12:06
DX: G89.29 Other chronic pain (principal); N39.0 Urinary tract infection, site not specified; N13.6 Pyonephrosis
CPT/HCPCS: 36415; 76775; 80053; 81001; 81025; 85025; 87077; 87086; 87186; 99285

== ENCOUNTER → 2017-11-20 | Outpatient (CLI) | payer MEDICAID ==
[~2017-11-20] VITALS: Ht 167.6 cm; Wt 70.9 kg
[2017-11-20 10:32] LABS: MICROSCOPIC INDICATED
[2017-11-20 10:35] LABS: INTERNATIONAL NORMALIZED RATIO 1.04 (0.93-1.1); PROTHROMBIN TIME 10.7 Seconds (9.6-11.5)
[2017-11-20 10:40] LABS: ANION GAP 8 mmol/L (5-15); CHLORIDE 109 mmol/L (98-107)
[2017-11-20 10:45] LABS: ALANINE AMINOTRANSFERASE 25 U/L (12-78); ALKALINE PHOSPHATASE 91 U/L (45-117); BILIRUBIN,TOTAL 0.4 mg/dL (0.2-1.0); TOTAL PROTEIN 7.8 g/dL (6.4-8.2)
== END | disposition home or self-care (01) ==
LOC: STAR 09:10 → EDSTATUS 11-22 13:30
PROVIDERS: ATTEND Urology
DX: Z01.818 Encounter for other preprocedural examination (principal); N20.0 Calculus of kidney
CPT/HCPCS: 36415; 71046; 80053; 81001; 85610; 85730; 87077; 87086; 93005

== ENCOUNTER 2017-12-12 12:26 | Emergency (ER) | payer MEDICAID ==
[~2017-12-12] VITALS: Ht 167.6 cm; Wt 79.0 kg
[2017-12-12 12:41] VITALS: BP 114/74
[2017-12-12] MEDS ORDERED: DEXAMETHASONE 4 MG/ML, 1ML PO ONE (13:00)
[2017-12-12] MEDS ORDERED: DEXAMETHASONE 4 MG TABLET ONE (13:05)
== END 2017-12-12 14:02 | disposition home or self-care (01) ==
LOC: ED 13:56
DX: J02.8 Acute pharyngitis due to other specified organisms (principal); B97.89 Other viral agents as the cause of diseases classified elsewhere; L04.0 Acute lymphadenitis of face, head and neck; F17.210 Nicotine dependence, cigarettes, uncomplicated; F31.9 Bipolar disorder, unspecified; E11.9 Type 2 diabetes mellitus without complications; G40.909 Epilepsy, unspecified, not intractable, without status epilepticus; Z90.49 Acquired absence of other specified parts of digestive tract
CPT/HCPCS: 70360; 99283; J1100

== ENCOUNTER 2017-12-19 13:58 | Emergency (ER) | payer MEDICAID ==
[~2017-12-19] VITALS: Ht 167.6 cm; Wt 83.8 kg
[2017-12-19 14:10] VITALS: BP 111/78
== END 2017-12-19 14:42 | disposition home or self-care (01) ==
LOC: ED 14:35
DX: H65.03 Acute serous otitis media, bilateral (principal); H69.82 Other specified disorders of Eustachian tube, left ear; G40.909 Epilepsy, unspecified, not intractable, without status epilepticus; E11.649 Type 2 diabetes mellitus with hypoglycemia without coma; Z88.0 Allergy status to penicillin
CPT/HCPCS: 99283

== ENCOUNTER 2018-01-09 17:49 | Emergency (ER) | payer MEDICAID ==
[~2018-01-09] VITALS: Ht 167.6 cm; Wt 83.8 kg
[2018-01-09 18:02] VITALS: BP 97/61
[2018-01-09] MEDS ORDERED: CARB200T PO (18:42)
[2018-01-09] MEDS ORDERED: ZIPR20CA2 PO (18:42)
[2018-01-09] MEDS ORDERED: ARIP2TAB2 PO (18:42)
[2018-01-09] MEDS ORDERED: TOPI25CA5 PO (18:43)
[2018-01-09] MEDS ORDERED: METF500T4 PO (18:43)
[2018-01-09] MEDS ORDERED: MORPHINE SULFATE 4 MG/ML, 1ML ONE (18:44)
[2018-01-09 18:54] LABS: ALBUMIN 3.7 g/dL (3.4-5.0); ANION GAP 5 mmol/L (5-15); CALCIUM 8.5 mg/dL (8.5-10.1); CHLORIDE 109 mmol/L (98-107); CREATININE 0.95 mg/dL (0.55-1.02)
[2018-01-09] MEDS ORDERED: MORPHINE SULFATE 4 MG/ML, 1ML IVPush PRN (19:00)
[2018-01-09 19:09] LABS: BASOPHILS # (AUTO) 0.06 x10^3/uL (0-0.1); BASOPHILS % (AUTO) 1 % (0-1); EOSINOPHILS # (AUTO) 0.36 x10^3/uL (0-0.4); EOSINOPHILS % (AUTO) 5 % (1-7); LYMPHOCYTES % (AUTO) 37 % (22-44); MD SCAN; MEAN CORPUSCULAR HEMOGLOBIN 29.4 pg (27.0-34.8); MEAN CORPUSCULAR HGB CONC 33.3 g/dL (32.4-35.8); MEAN CORPUSCULAR VOLUME 88.3 fL (80-100); MEAN PLATELET VOLUME 8.1 fL (7.4-10.4); MONOCYTES # (AUTO) 0.71 x10^3/uL (0.2-0.8); MONOCYTES % (AUTO) 9 % (2-9); NEUTROPHILS # (AUTO) 3.91 x10^3/uL (1.8-6.8); NEUTROPHILS % (AUTO) 49 % (42-75); PLATELET COUNT 262 x10^3/uL (130-400); RED BLOOD COUNT 4.64 x10^6/uL (3.82-5.3); RED CELL DISTRIBUTION WIDTH 14.4 % (9.6-15.2)
[2018-01-09 19:12] LABS: HCG UR SG 1.022 (1.003-1.030); MICROSCOPIC AUTO
[2018-01-09 19:14] LABS: CULTURE INDICATED? YES
[2018-01-09] MEDS ORDERED: CIPROFLOXACIN/PMX 400MG/200ML 200 ML IV ONE (20:30)
[2018-01-09] MEDS ORDERED: CIPROFLOXACIN 500 MG TABLET ONE (20:33)
[2018-01-09] MEDS ORDERED: CIPROFLOXACIN 500 MG TABLET PO ONE (21:00)
== END 2018-01-09 20:39 | disposition home or self-care (01) ==
LOC: ED 19:45
DX: N30.01 Acute cystitis with hematuria (principal); N28.1 Cyst of kidney, acquired; N28.89 Other specified disorders of kidney and ureter; E11.9 Type 2 diabetes mellitus without complications; F31.9 Bipolar disorder, unspecified; F17.200 Nicotine dependence, unspecified, uncomplicated; G40.909 Epilepsy, unspecified, not intractable, without status epilepticus; Z90.49 Acquired absence of other specified parts of digestive tract; Z88.0 Allergy status to penicillin; Z88.1 Allergy status to other antibiotic agents; Z88.6 Allergy status to analgesic agent
CPT/HCPCS: 36415; 74176; 80048; 81001; 81025; 82040; 85025; 87077; 87086; 87186; 96374

== ENCOUNTER 2018-01-13 18:28 | Emergency (ER) | payer MEDICAID ==
[~2018-01-13] VITALS: Ht 167.6 cm; Wt 72.0 kg
[~2018-01-13 18:28] MED LIST changes: +METF500T4 PO
[2018-01-13 18:31] VITALS: BP 94/54
[2018-01-13] MEDS ORDERED: MORPHINE SULFATE 4 MG/ML, 1ML ONE ×2 (18:48→20:05)
[2018-01-13] MEDS ORDERED: ONDANSETRON ODT 4 MG ONE (18:48)
[2018-01-13] MEDS: MORPHINE SULFATE 4 MG/ML, 1ML IVPush PRN ×2 (18:51→20:15)
[2018-01-13 19:08] LABS: MICROSCOPIC AUTO
[2018-01-13 19:13] LABS: CULTURE INDICATED? YES
[2018-01-13] MEDS ORDERED: CEFTRIAXONE PMX 1GM/50ML 50 ML IV ONE ×2 (20:00)
[2018-01-13] MEDS ORDERED: SODIUM CHLORIDE 0.9% 1,000ML IVBOLUS ONE (20:00)
[2018-01-13] MEDS ORDERED: CEFTRIAXONE PMX 1GM/50ML 50 ML ONE (20:05)
[2018-01-13 20:07] LABS: BASOPHILS # (AUTO) 0.03 x10^3/uL (0-0.1); BASOPHILS % (AUTO) 0 % (0-1); EOSINOPHILS # (AUTO) 0.37 x10^3/uL (0-0.4); EOSINOPHILS % (AUTO) 5 % (1-7); LYMPHOCYTES # (AUTO) 3.18 x10^3/uL (1-3.4); LYMPHOCYTES % (AUTO) 40 % (22-44); MD NO; MEAN CORPUSCULAR HGB CONC 33.3 g/dL (32.4-35.8); MEAN PLATELET VOLUME 7.6 fL (7.4-10.4); MONOCYTES % (AUTO) 8 % (2-9); NEUTROPHILS # (AUTO) 3.76 x10^3/uL (1.8-6.8); NEUTROPHILS % (AUTO) 47 % (42-75); PLATELET COUNT 273 x10^3/uL (130-400); RED BLOOD COUNT 4.45 x10^6/uL (3.82-5.3); RED CELL DISTRIBUTION WIDTH 14.2 % (9.6-15.2)
[2018-01-13 20:18] LABS: ALBUMIN 3.4 g/dL (3.4-5.0); ANION GAP 7 mmol/L (5-15); CALCIUM 8.6 mg/dL (8.5-10.1); CHLORIDE 110 mmol/L (98-107); CREATININE 1.09 mg/dL (0.55-1.02)
[2018-01-13] MEDS ORDERED: DIPHENHYDRAMINE 50 MG/ML, 1ML ONE (20:22)
[2018-01-13] MEDS ORDERED: DIPHENHYDRAMINE 50 MG/ML, 1ML IVPush ONE (20:30)
[2018-01-13] MEDS ORDERED: OXYcodone/APAP 10/325MG TABLET PO ONE (21:00)
[2018-01-13] MEDS ORDERED: CEFTRIAXONE 1,000 MG IM ONE (21:00)
[2018-01-13] MEDS ORDERED: OXYcodone/APAP 10/325MG TABLET ONE (21:14)
== END 2018-01-13 22:05 | disposition home or self-care (01) ==
LOC: ED 21:41
DX: N10 Acute pyelonephritis (principal)
CPT/HCPCS: 36415; 80048; 81001; 82040; 85025; 87086; 96365; 96375; 96376; 99284; J0696; J1200; J7030

== ENCOUNTER 2018-03-15 14:01 | Inpatient (IN) | payer MEDICAID ==
[2018-03-14] MEDS: SODIUM CHLORIDE 0.9% 1,000 ML IV SCH (21:30)
[~2018-03-15] VITALS: Ht 167.6 cm; Wt 85.6 kg
[~2018-03-15 14:01] MED LIST changes: -METF500T4 PO; +METF500T5 PO; +TRAZ-137 PO; -TRAZ100T15 PO
[2018-03-15] MEDS ORDERED: SODIUM CHLORIDE FLUSH 10ML SYR IVF ONE (14:30)
[2018-03-15] MEDS ORDERED: ONDANSETRON 2MG/ML, 2ML IVPush ONE (14:30)
[2018-03-15 14:43] LABS: BASOPHILS # (AUTO) 0.04 x10^3/uL (0-0.1); BASOPHILS % (AUTO) 1 % (0-1); EOSINOPHILS # (AUTO) 0.24 x10^3/uL (0-0.4); EOSINOPHILS % (AUTO) 3 % (1-7); LYMPHOCYTES # (AUTO) 2.52 x10^3/uL (1-3.4); LYMPHOCYTES % (AUTO) 30 % (22-44); MD NO; MEAN CORPUSCULAR HEMOGLOBIN 29.9 pg (27.0-34.8); MEAN CORPUSCULAR VOLUME 88.1 fL (80-100); MEAN PLATELET VOLUME 8.1 fL (7.4-10.4); MONOCYTES % (AUTO) 8 % (2-9); NEUTROPHILS # (AUTO) 4.98 x10^3/uL (1.8-6.8); NEUTROPHILS % (AUTO) 59 % (42-75); PLATELET COUNT 208 x10^3/uL (130-400); RED BLOOD COUNT 4.54 x10^6/uL (3.82-5.3); RED CELL DISTRIBUTION WIDTH 14.6 % (9.6-15.2)
[2018-03-15 14:55] LABS: ANION GAP 6 mmol/L (5-15); CALCIUM 8.4 mg/dL (8.5-10.1); CHLORIDE 110 mmol/L (98-107); CREATININE 0.92 mg/dL (0.55-1.02)
[2018-03-15 14:56] LABS: ALANINE AMINOTRANSFERASE 41 U/L (12-78); ALBUMIN 3.5 g/dL (3.4-5.0)
[2018-03-15 14:59] LABS: ALKALINE PHOSPHATASE 88 U/L (45-117); BILIRUBIN,TOTAL 0.4 mg/dL (0.2-1.0); TOTAL PROTEIN 6.8 g/dL (6.4-8.2)
[2018-03-15] MEDS ORDERED: MORPHINE SULFATE 4 MG/ML, 1ML ONE ×3 (15:29→18:41)
[2018-03-15] MEDS ORDERED: ONDANSETRON 2MG/ML, 2ML ONE (15:29)
[2018-03-15] MEDS: MORPHINE SULFATE 4 MG/ML, 1ML IVPush PRN ×2 (15:33→17:10)
[2018-03-15] MEDS ORDERED: OMNIPAQUE 350 MG/ML, 100ML BOTTLE ONE (17:06)
[2018-03-15] MEDS ORDERED: morphine SULFATE 10 MG/ML, 1ML IVPush ONE (18:30)
[2018-03-15] MEDS ORDERED: GOLYTELY 4,000ML ORAL.SOL PO ONE (19:00)
[2018-03-15] MEDS ORDERED: ONDANSETRON 2MG/ML, 2ML IVPush PRN (19:30)
[2018-03-15] MEDS ORDERED: morphine SULFATE 10 MG/ML, 1ML IVPush PRN (19:30)
[2018-03-15] MEDS ORDERED: NICOTINE 21 MG/24 HR PATCH.TD24 TD SCH (19:30)
[2018-03-15] MEDS ORDERED: ONDANSETRON ODT 4 MG PO PRN (19:30)
[2018-03-15 19:53] VITALS: BP 94/65
[2018-03-15] MEDS: TOPIRAMATE 25 MG TABLET PO SCH (20:45)
[2018-03-15] MEDS: metFORMIN 500 MG TABLET PO SCH (21:00)
[2018-03-15] MEDS: CARBAMAZEPINE 200 MG TABLET PO SCH (21:00)
[2018-03-15] MEDS: ZIPRASIDONE 20MG CAPSULE PO SCH (21:01)
[2018-03-15 22:33] LABS: MICROSCOPIC AUTO
[2018-03-15 22:37] LABS: CULTURE INDICATED? YES
[2018-03-16 01:14] VITALS: BP 105/64
[2018-03-16] MEDS: SODIUM CHLORIDE 0.9% 1,000 ML IV SCH ×2 (05:13→11:42)
[2018-03-16 05:59] LABS: BASOPHILS # (AUTO) 0.02 x10^3/uL (0-0.1); BASOPHILS % (AUTO) 0 % (0-1); EOSINOPHILS # (AUTO) 0.15 x10^3/uL (0-0.4); EOSINOPHILS % (AUTO) 3 % (1-7); LYMPHOCYTES # (AUTO) 1.54 x10^3/uL (1-3.4); LYMPHOCYTES % (AUTO) 26 % (22-44); MD NO; MEAN CORPUSCULAR HEMOGLOBIN 30.1 pg (27.0-34.8); MEAN CORPUSCULAR VOLUME 88.6 fL (80-100); MEAN PLATELET VOLUME 8.1 fL (7.4-10.4); MONOCYTES % (AUTO) 8 % (2-9); NEUTROPHILS # (AUTO) 3.74 x10^3/uL (1.8-6.8); NEUTROPHILS % (AUTO) 63 % (42-75); PLATELET COUNT 158 x10^3/uL (130-400); RED BLOOD COUNT 4.58 x10^6/uL (3.82-5.3); RED CELL DISTRIBUTION WIDTH 14.6 % (9.6-15.2)
[2018-03-16 06:00] LABS: ANION GAP 5 mmol/L (5-15); CALCIUM 8.5 mg/dL (8.5-10.1); CHLORIDE 110 mmol/L (98-107); CREATININE 0.83 mg/dL (0.55-1.02)
[2018-03-16 08:02] VITALS: BP 95/54
[2018-03-16] MEDS ORDERED: ARIPIPRAZOLE 2 MG TABLET PO SCH (09:00)
[2018-03-16] MEDS ORDERED: ZIPRASIDONE 20MG CAPSULE PO SCH (09:00)
[2018-03-16] MEDS ORDERED: TOPIRAMATE 25 MG TABLET PO SCH (09:00)
[2018-03-16] MEDS ORDERED: CARBAMAZEPINE 200 MG TABLET PO SCH (09:00)
[2018-03-16] MEDS ORDERED: PROPOFOL 10 MG/ML, 20ML ONE (10:33)
[2018-03-16] MEDS: TOPIRAMATE 25 MG TABLET PO SCH (13:55)
[2018-03-16] MEDS: metFORMIN 500 MG TABLET PO SCH (13:56)
[2018-03-16] MEDS: CARBAMAZEPINE 200 MG TABLET PO SCH (13:56)
[2018-03-16] MEDS: ZIPRASIDONE 20MG CAPSULE PO SCH (13:56)
[2018-03-16 14:30] VITALS: BP 110/75
[2018-03-16] MEDS ORDERED: HYDR30CR69 TP (15:00)
[2018-03-16] MEDS ORDERED: POLY17PO5 NG (15:00)
[2018-03-16] MEDS ORDERED: HYDROCORTISONE 25 MG SUPP PR SCH (21:00)
[2018-03-17] MEDS ORDERED: POLYETHYLENE GLYCOL 17 GM PACKET NG SCH (09:00)
== END 2018-03-16 17:10 | disposition home or self-care (01) | DRG 392 ==
LOC: ED 14:55 → EDIP 18:20 → 3NE 19:30 → DCLOUNGE 03-16 17:00
PROVIDERS: ADMIT Internal Medicine; ATTEND Internal Medicine
PROC: 0DBN8ZZ Excision of Sigmoid Colon, Via Natural or Artificial Opening Endoscopic (ICD-10-PCS; principal; 2018-03-16 10:45)
PROC: 0W3P8ZZ Control Bleeding in Gastrointestinal Tract, Via Natural or Artificial Opening Endoscopic (ICD-10-PCS; 2018-03-16 10:45)
DX: K20.9 Esophagitis, unspecified (principal); K62.89 Other specified diseases of anus and rectum; K64.8 Other hemorrhoids; F15.10 Other stimulant abuse, uncomplicated; E11.9 Type 2 diabetes mellitus without complications; F17.210 Nicotine dependence, cigarettes, uncomplicated; J44.9 Chronic obstructive pulmonary disease, unspecified; G40.909 Epilepsy, unspecified, not intractable, without status epilepticus; K63.5 Polyp of colon; F31.9 Bipolar disorder, unspecified; R13.10 Dysphagia, unspecified; Z90.49 Acquired absence of other specified parts of digestive tract; Z88.6 Allergy status to analgesic agent; Z88.0 Allergy status to penicillin; Z88.1 Allergy status to other antibiotic agents; Z87.442 Personal history of urinary calculi; Z80.1 Family history of malignant neoplasm of trachea, bronchus and lung; Z80.3 Family history of malignant neoplasm of breast; Z79.84 Long term (current) use of oral hypoglycemic drugs; Z79.899 Other long term (current) drug therapy
CPT/HCPCS: 36415; 74177; 80048; 80053; 81001; 83605; 83735; 84100; 84703; 85018; 85025; 86850; 86900; 87086; 88305; 93005; 96374; 96375; 96376; J2405; J2704; Q9967; J2270; J7030

== ENCOUNTER 2018-04-19 20:07 | Emergency (ER) | payer MEDICAID ==
[~2018-04-19] VITALS: Ht 162.6 cm; Wt 82.0 kg
[~2018-04-19 20:07] MED LIST changes: +HYDR30CR69 TP; +METF500T17 PO; -METF500T5 PO; +POLY17PO5 NG
[2018-04-19 20:09] VITALS: BP 120/80
[2018-04-19] MEDS ORDERED: OXYcodone/APAP 5/325MG TABLET PO ONE (21:00)
[2018-04-19] MEDS ORDERED: OXYcodone/APAP 5/325MG TABLET ONE (21:03)
[2018-04-19] MEDS ORDERED: CYCLOBENZAPRINE 10 MG TABLET PO STA (22:23)
[2018-04-19] MEDS ORDERED: CYCLOBENZAPRINE 10 MG TABLET ONE (22:27)
== END 2018-04-19 22:21 | disposition home or self-care (01) ==
LOC: ED 20:20
DX: G89.29 Other chronic pain (principal); M54.16 Radiculopathy, lumbar region; F17.210 Nicotine dependence, cigarettes, uncomplicated; G40.909 Epilepsy, unspecified, not intractable, without status epilepticus; E11.649 Type 2 diabetes mellitus with hypoglycemia without coma
CPT/HCPCS: 76700; 99284

== ENCOUNTER 2018-04-23 18:04 | Emergency (ER) | payer MEDICAID ==
[~2018-04-23] VITALS: Ht 162.6 cm; Wt 83.2 kg
[2018-04-23 18:14] VITALS: BP 100/59
[2018-04-23] MEDS ORDERED: HYDROcodone/APAP 5/325 TABLET ONE (18:44)
[2018-04-23] MEDS ORDERED: HYDROcodone/APAP 5/325 TABLET PO ONE (19:00)
== END 2018-04-23 19:30 | disposition home or self-care (01) ==
LOC: ED 19:05
DX: M54.16 Radiculopathy, lumbar region (principal); E11.9 Type 2 diabetes mellitus without complications; F31.9 Bipolar disorder, unspecified; F17.200 Nicotine dependence, unspecified, uncomplicated; Z90.49 Acquired absence of other specified parts of digestive tract
CPT/HCPCS: 72110; 99284

== ENCOUNTER 2018-05-03 12:48 | Emergency (ER) | payer MEDICAID ==
[~2018-05-03] VITALS: Ht 167.6 cm; Wt 84.5 kg
[2018-05-03] MEDS ORDERED: PROMETHAZINE 25 MG/ML, 1ML IM ONE (13:30)
[2018-05-03] MEDS ORDERED: HYDROmorphone 1 MG/ML, 1ML IM ONE (13:30)
[2018-05-03] MEDS ORDERED: HYDROmorphone 2 MG/ML, 1ML ONE (13:55)
[2018-05-03 13:57] LABS: BASOPHILS # (AUTO) 0.01 x10^3/uL (0-0.1); BASOPHILS % (AUTO) 0 % (0-1); EOSINOPHILS # (AUTO) 0.29 x10^3/uL (0-0.4); EOSINOPHILS % (AUTO) 6 % (1-7); LYMPHOCYTES % (AUTO) 37 % (22-44); MD NO; MEAN CORPUSCULAR HEMOGLOBIN 28.8 pg (27.0-34.8); MEAN CORPUSCULAR HGB CONC 33.2 g/dL (32.4-35.8); MEAN CORPUSCULAR VOLUME 86.8 fL (80-100); MEAN PLATELET VOLUME 7.7 fL (7.4-10.4); MONOCYTES # (AUTO) 0.45 x10^3/uL (0.2-0.8); MONOCYTES % (AUTO) 9 % (2-9); NEUTROPHILS # (AUTO) 2.33 x10^3/uL (1.8-6.8); NEUTROPHILS % (AUTO) 48 % (42-75); PLATELET COUNT 239 x10^3/uL (130-400); RED BLOOD COUNT 4.66 x10^6/uL (3.82-5.3); RED CELL DISTRIBUTION WIDTH 14.8 % (9.6-15.2)
[2018-05-03 14:02] VITALS: BP 103/72
[2018-05-03] MEDS ORDERED: PROMETHAZINE 25 MG/ML, 1ML ONE (14:06)
[2018-05-03 14:07] LABS: ANION GAP 7 mmol/L (5-15); CALCIUM 8.2 mg/dL (8.5-10.1); CHLORIDE 110 mmol/L (98-107); CREATININE 0.84 mg/dL (0.55-1.02)
[2018-05-03 14:47] LABS: HCT (SEDRATE) 40.4 % (34.6-47.8)
[2018-05-03] MEDS ORDERED: DIAZEPAM 5 MG TABLET PO ONE (15:00)
[2018-05-03] MEDS ORDERED: DIAZEPAM 5 MG TABLET ONE (15:02)
== END 2018-05-03 16:47 | disposition home or self-care (01) ==
LOC: ED 13:55
DX: G89.29 Other chronic pain (principal); M54.5 Low back pain; E11.9 Type 2 diabetes mellitus without complications; G40.909 Epilepsy, unspecified, not intractable, without status epilepticus
CPT/HCPCS: 36415; 72148; 80048; 85025; 85651; 86140; 96372; 99285; J1170; J2550

== ENCOUNTER 2018-05-14 13:58 | Emergency (ER) | payer MEDICAID ==
[~2018-05-14] VITALS: Ht 167.6 cm; Wt 84.9 kg
[2018-05-14 13:59] VITALS: BP 100/70
[2018-05-14] MEDS ORDERED: GABA800T2 PO (15:18)
== END 2018-05-14 15:47 | disposition home or self-care (01) ==
LOC: ED 14:23
DX: S46.912A Strain of unspecified muscle, fascia and tendon at shoulder and upper arm level, left arm, initial encounter (principal); H60.12 Cellulitis of left external ear; G40.909 Epilepsy, unspecified, not intractable, without status epilepticus; E11.649 Type 2 diabetes mellitus with hypoglycemia without coma; X58.XXXA Exposure to other specified factors, initial encounter; Y93.89 Activity, other specified; Y92.89 Other specified places as the place of occurrence of the external cause; Y99.8 Other external cause status
CPT/HCPCS: 99284

== ENCOUNTER 2018-05-29 10:16 | Emergency (ER) | payer MEDICAID ==
[~2018-05-29] VITALS: Ht 167.6 cm; Wt 80.0 kg
[~2018-05-29 10:16] MED LIST changes: +GABA800T2 PO
[2018-05-29 11:04] LABS: BASOPHILS # (AUTO) 0.05 x10^3/uL (0-0.1); BASOPHILS % (AUTO) 1 % (0-1); EOSINOPHILS # (AUTO) 0.33 x10^3/uL (0-0.4); EOSINOPHILS % (AUTO) 5 % (1-7); LYMPHOCYTES # (AUTO) 2.48 x10^3/uL (1-3.4); LYMPHOCYTES % (AUTO) 37 % (22-44); MD NO; MEAN CORPUSCULAR HEMOGLOBIN 29.3 pg (27.0-34.8); MEAN CORPUSCULAR HGB CONC 33.6 g/dL (32.4-35.8); MEAN CORPUSCULAR VOLUME 87.3 fL (80-100); MEAN PLATELET VOLUME 8.2 fL (7.4-10.4); MONOCYTES # (AUTO) 0.51 x10^3/uL (0.2-0.8); MONOCYTES % (AUTO) 8 % (2-9); NEUTROPHILS # (AUTO) 3.29 x10^3/uL (1.8-6.8); NEUTROPHILS % (AUTO) 49 % (42-75); PLATELET COUNT 214 x10^3/uL (130-400); RED BLOOD COUNT 4.16 x10^6/uL (3.82-5.3)
[2018-05-29 11:14] LABS: ALANINE AMINOTRANSFERASE 62 U/L (12-78); ALBUMIN 3.3 g/dL (3.4-5.0); ANION GAP 4 mmol/L (5-15); CHLORIDE 110 mmol/L (98-107)
[2018-05-29 11:15] LABS: ALKALINE PHOSPHATASE 136 U/L (45-117); BILIRUBIN,TOTAL 0.1 mg/dL (0.2-1.0); TOTAL PROTEIN 6.5 g/dL (6.4-8.2)
[2018-05-29 12:33] VITALS: BP 95/52
== END 2018-05-29 13:15 | disposition home or self-care (01) ==
LOC: ED 10:51
DX: J44.1 Chronic obstructive pulmonary disease with (acute) exacerbation (principal); F31.9 Bipolar disorder, unspecified; E11.9 Type 2 diabetes mellitus without complications; Z88.0 Allergy status to penicillin; Z88.1 Allergy status to other antibiotic agents; Z88.8 Allergy status to other drugs, medicaments and biological substances; Z79.899 Other long term (current) drug therapy; Z90.49 Acquired absence of other specified parts of digestive tract
CPT/HCPCS: 36415; 71045; 80053; 83605; 85025; 87040; 99285

== ENCOUNTER 2018-06-01 16:50 | Emergency (ER) | payer MEDICAID ==
[~2018-06-01] VITALS: Ht 167.6 cm; Wt 86.9 kg
[2018-06-01 18:43] LABS: RAPID INFLUENZA A Negative (Negative); RAPID INFLUENZA B Negative (Negative)
[2018-06-01 20:08] VITALS: BP 102/53
== END 2018-06-01 20:10 | disposition home or self-care (01) ==
LOC: ED 20:04
DX: J45.909 Unspecified asthma, uncomplicated (principal); J44.9 Chronic obstructive pulmonary disease, unspecified; E11.649 Type 2 diabetes mellitus with hypoglycemia without coma; G40.909 Epilepsy, unspecified, not intractable, without status epilepticus; F17.200 Nicotine dependence, unspecified, uncomplicated; Z88.1 Allergy status to other antibiotic agents; Z88.0 Allergy status to penicillin
CPT/HCPCS: 87400; 99284

== ENCOUNTER 2018-06-20 12:08 | Emergency (ER) | payer MEDICAID ==
[~2018-06-20] VITALS: Ht 167.6 cm; Wt 95.0 kg
[2018-06-20 13:41] LABS: BASOPHILS # (AUTO) 0.09 x10^3/uL (0-0.1); BASOPHILS % (AUTO) 1 % (0-1); EOSINOPHILS # (AUTO) 0.32 x10^3/uL (0-0.4); EOSINOPHILS % (AUTO) 3 % (1-7); LYMPHOCYTES % (AUTO) 18 % (22-44); MD NO; MEAN CORPUSCULAR HEMOGLOBIN 28.6 pg (27.0-34.8); MEAN CORPUSCULAR HGB CONC 33.3 g/dL (32.4-35.8); MEAN CORPUSCULAR VOLUME 86.1 fL (80-100); MEAN PLATELET VOLUME 7.7 fL (7.4-10.4); MONOCYTES # (AUTO) 0.81 x10^3/uL (0.2-0.8); MONOCYTES % (AUTO) 8 % (2-9); NEUTROPHILS # (AUTO) 7.51 x10^3/uL (1.8-6.8); NEUTROPHILS % (AUTO) 71 % (42-75); PLATELET COUNT 297 x10^3/uL (130-400); RED BLOOD COUNT 4.76 x10^6/uL (3.82-5.3); RED CELL DISTRIBUTION WIDTH 15.3 % (9.6-15.2)
[2018-06-20 13:52] LABS: ALANINE AMINOTRANSFERASE 22 U/L (12-78); ALBUMIN 3.6 g/dL (3.4-5.0); ANION GAP 9 mmol/L (5-15); CALCIUM 8.6 mg/dL (8.5-10.1); CHLORIDE 109 mmol/L (98-107); CREATININE 0.86 mg/dL (0.55-1.02)
[2018-06-20 13:55] LABS: ALKALINE PHOSPHATASE 117 U/L (45-117); BILIRUBIN,TOTAL 0.2 mg/dL (0.2-1.0)
[2018-06-20 14:06] VITALS: BP 110/58
== END 2018-06-20 15:26 | disposition home or self-care (01) ==
LOC: ED 12:23
DX: R10.12 Left upper quadrant pain (principal); F17.200 Nicotine dependence, unspecified, uncomplicated; J44.9 Chronic obstructive pulmonary disease, unspecified; E11.9 Type 2 diabetes mellitus without complications; G40.909 Epilepsy, unspecified, not intractable, without status epilepticus
CPT/HCPCS: 36415; 76770; 80053; 83690; 85025; 99284

== ENCOUNTER 2018-08-05 14:17 | Emergency (ER) | payer MEDICAID ==
[~2018-08-05] VITALS: Ht 167.6 cm; Wt 85.3 kg
[2018-08-05 14:28] VITALS: BP 112/67
[2018-08-05] MEDS ORDERED: DEXAMETHASONE 4 MG/ML, 5ML ONE (14:58)
[2018-08-05] MEDS ORDERED: DEXAMETHASONE 4 MG/ML, 1ML PO ONE (15:00)
== END 2018-08-05 15:48 | disposition home or self-care (01) ==
LOC: ED 15:06
DX: J02.9 Acute pharyngitis, unspecified (principal); B34.9 Viral infection, unspecified; J44.9 Chronic obstructive pulmonary disease, unspecified; E11.9 Type 2 diabetes mellitus without complications; G40.909 Epilepsy, unspecified, not intractable, without status epilepticus
CPT/HCPCS: 71046; 93005; 99283; J1100

== ENCOUNTER 2018-08-22 11:22 | Emergency (ER) | payer MEDICAID ==
[~2018-08-22] VITALS: Ht 167.6 cm; Wt 86.0 kg
[~2018-08-22 11:22] MED LIST changes: -GABA800T2 PO; +GABA800T5 PO
[2018-08-22 11:56] LABS: BASOPHILS # (AUTO) 0.06 x10^3/uL (0-0.1); BASOPHILS % (AUTO) 1 % (0-1); EOSINOPHILS # (AUTO) 0.44 x10^3/uL (0-0.4); EOSINOPHILS % (AUTO) 5 % (1-7); LYMPHOCYTES # (AUTO) 2.18 x10^3/uL (1-3.4); LYMPHOCYTES % (AUTO) 25 % (22-44); MD NO; MEAN CORPUSCULAR HEMOGLOBIN 28.4 pg (27.0-34.8); MEAN CORPUSCULAR HGB CONC 33.6 g/dL (32.4-35.8); MEAN CORPUSCULAR VOLUME 84.6 fL (80-100); MEAN PLATELET VOLUME 8.1 fL (7.4-10.4); MONOCYTES # (AUTO) 0.47 x10^3/uL (0.2-0.8); MONOCYTES % (AUTO) 5 % (2-9); NEUTROPHILS # (AUTO) 5.55 x10^3/uL (1.8-6.8); NEUTROPHILS % (AUTO) 64 % (42-75); PLATELET COUNT 318 x10^3/uL (130-400); RED BLOOD COUNT 5.09 x10^6/uL (3.82-5.3); RED CELL DISTRIBUTION WIDTH 16.1 % (9.6-15.2)
[2018-08-22 12:05] LABS: ALANINE AMINOTRANSFERASE 24 U/L (12-78); ALBUMIN 4.1 g/dL (3.4-5.0); ANION GAP 7 mmol/L (5-15); CALCIUM 9.2 mg/dL (8.5-10.1); CHLORIDE 106 mmol/L (98-107); CREATININE 1.05 mg/dL (0.55-1.02)
[2018-08-22 12:10] LABS: ALKALINE PHOSPHATASE 97 U/L (45-117); BILIRUBIN,TOTAL 0.3 mg/dL (0.2-1.0); TOTAL PROTEIN 7.8 g/dL (6.4-8.2)
--- NOTE | 2018-08-22 13:12 | NUR ---
FROM LOBBY TO ROOM AT THIS TIME
[2018-08-22] MEDS ORDERED: PROMETHAZINE 25 MG/ML, 1ML IM ONE (13:30)
--- NOTE | 2018-08-22 14:46 | NUR ---
PT A&OX4, RESP EVEN & UNLABORED, SKIN WNL. C/O NAUSEA X 2 DAYS, DRY HEAVES, MINOR FEVER (99.0). DENIES DIARRHEA, CONSTIPATION, COUGH. NO FLU VACC THIS SEASON. NO MEDS TAKEN FOR SX
[2018-08-22] MEDS ORDERED: ALBU6.7H INH (14:57)
[2018-08-22] MEDS ORDERED: ESOM20CA PO (14:57)
[2018-08-22] MEDS ORDERED: GABA300C10 PO (14:57)
[2018-08-22] MEDS ORDERED: TIZA4CAP PO (14:57)
[2018-08-22 14:58] VITALS: BP 90/42
[2018-08-22 15:35] LABS: CULTURE INDICATED? YES; MICROSCOPIC INDICATED
--- NOTE | 2018-08-22 16:09 | NUR ---
PT TO BE DC'D
--- NOTE | 2018-08-22 16:30 | NUR ---
TASK RN: POC IS DC. PT OFF MONITORING AT THIS TIME AND ASKED TO DRESS. FAMILY AT BEDSIDE
--- NOTE | 2018-08-22 16:44 | NUR ---
TASK RN: DC EDUCATION PROVIDED BY PRIMARY RN, CLAUDIA. PT AMBULATED STEADILY TO DC WITH FAMILY.
== END 2018-08-22 16:55 | disposition home or self-care (01) ==
LOC: ED 11:49
DX: N30.00 Acute cystitis without hematuria (principal); J44.9 Chronic obstructive pulmonary disease, unspecified; E11.9 Type 2 diabetes mellitus without complications; F20.9 Schizophrenia, unspecified; F31.9 Bipolar disorder, unspecified; Z90.49 Acquired absence of other specified parts of digestive tract
CPT/HCPCS: 36415; 80053; 81001; 83690; 84703; 85025; 87086; 99283

== ENCOUNTER 2018-11-13 05:14 | Emergency (ER) | payer MEDICAID ==
[~2018-11-13 05:14] MED LIST changes: +ALBU6.7H INH; +ESOM20CA PO; +GABA300C10 PO; +TIZA4CAP PO
--- NOTE | 2018-11-13 05:22 | NUR ---
PRESENTS TO ED W/ MIGRANE 05/09 THAT WOKE HER UP. STATES PAIN MAINLY ON L SIDE OF HEAD. 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 NEURO OTHERWISE INTACT IN ED. STATES NUMBNESS AND TINGLING IN EXTREMITIES. 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 PT STATES UNABLE TO MOVE L ARM, AT ALL. PT ABLE TO PERFORM NEURO EXAM AND L AND R UE EQUAL BILATERAL DURING EXAM. PT CONTINUES TO STATE CANT MOVE L ARM AFTER ASSESSMENT. MONITORING APPLIED. VSS. CALL LIGHT WITHIN REACH. AWAITING MD ASSESSMENT. Addendum: 11/13/18 at 0547 by RAY PRESENTS TO ED W/ MIGRANE 05/09 THAT WOKE HER UP. HX OF SAME. STATES PAIN MAINLY ON L SIDE OF HEAD. 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 NEURO OTHERWISE INTACT IN ED. STATES NUMBNESS AND TINGLING IN EXTREMITIES. 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 PT STATES UNABLE TO MOVE L ARM, AT ALL. PT ABLE TO PERFORM NEURO EXAM AND L AND R UE EQUAL BILATERAL DURING EXAM. PT CONTINUES TO STATE CANT MOVE L ARM AFTER ASSESSMENT. MONITORING APPLIED. VSS. CALL LIGHT WITHIN REACH. AWAITING MD ASSESSMENT.
--- NOTE | 2018-11-13 05:58 | NUR ---
AT BEDSIDE FOR ASSESSMENT.
[2018-11-13] MEDS ORDERED: PROMETHAZINE 25 MG/ML, 1ML ONE (06:11)
[2018-11-13] MEDS ORDERED: HYDROmorphone 1 MG/ML, 1ML VIAL ONE (06:11)
[2018-11-13] MEDS ORDERED: HYDROmorphone 1 MG/ML, 1ML INJ IM ONE (06:30)
[2018-11-13] MEDS ORDERED: PROMETHAZINE 25 MG/ML, 1ML IM ONE (06:30)
--- NOTE | 2018-11-13 06:56 | NUR ---
PT REPORT TO GEN YUNG.
[2018-11-13 07:07] VITALS: BP 126/84
--- NOTE | 2018-11-13 07:13 | NUR ---
SBAR REPORT FROM RENÉ YUNG. PT RESTING ON [employer]. SIDE RAILS UP X 2. CALL LIGHT IN REACH. STATES PAIN HAS DECREASED TO AN 03/09. PT VSS.
== END 2018-11-13 07:45 | disposition home or self-care (01) ==
LOC: ED 07:30
DX: R51 Headache (principal); E11.9 Type 2 diabetes mellitus without complications; G40.909 Epilepsy, unspecified, not intractable, without status epilepticus; J45.909 Unspecified asthma, uncomplicated
CPT/HCPCS: 96372; 99283; J1170; J2550

== ENCOUNTER 2018-11-13 19:04 | Emergency (ER) | payer MEDICAID ==
[~2018-11-13] VITALS: Ht 167.6 cm; Wt 90.7 kg
--- NOTE | 2018-11-13 21:47 | NUR ---
pt to room from lobby
[2018-11-13] MEDS ORDERED: PROCHLORPERAZINE 5 MG/ML, 2ML ONE (22:27)
[2018-11-13] MEDS ORDERED: DIPHENHYDRAMINE 50 MG/ML, 1ML ONE (22:27)
[2018-11-13] MEDS ORDERED: DIPHENHYDRAMINE 50 MG/ML, 1ML IVPush ONE (22:30)
[2018-11-13] MEDS ORDERED: PROCHLORPERAZINE 5 MG/ML, 2ML IVPush ONE (22:30)
[2018-11-13] MEDS ORDERED: BUTALB/APAP/CAFFEINE 50MG/325MG/40MG PO ONE (22:30)
--- NOTE | 2018-11-13 22:44 | NUR ---
IV PLACED, PT MEDICATED PER SEP. VSS. AWAITING MED FROM PHARM AT THIS TIME. CALL LIGHT WITHIN REACH
--- NOTE | 2018-11-13 23:03 | NUR ---
REPORT GIVEN TO MAHIN YUNG
--- NOTE | 2018-11-14 00:25 | NUR ---
iv was out given dc instruction with referral to follow up with neurologist pt understood pt up ambualted to check out
[2018-11-14 00:26] VITALS: BP 99/78
== END 2018-11-14 00:28 | disposition home or self-care (01) ==
LOC: ED 21:48
DX: G43.009 Migraine without aura, not intractable, without status migrainosus (principal); I10 Essential (primary) hypertension; J44.9 Chronic obstructive pulmonary disease, unspecified; E11.649 Type 2 diabetes mellitus with hypoglycemia without coma; G40.909 Epilepsy, unspecified, not intractable, without status epilepticus; Z90.49 Acquired absence of other specified parts of digestive tract; Z88.0 Allergy status to penicillin
CPT/HCPCS: 96374; 96375; 99283; J0780; J1200

== ENCOUNTER 2018-12-01 14:01 | Emergency (ER) | payer MEDICAID ==
[~2018-12-01] VITALS: Ht 167.6 cm; Wt 87.7 kg
[2018-12-01 14:02] VITALS: BP 127/82
--- NOTE | 2018-12-01 14:45 | NUR ---
C/O TREVINO. Meds admin.
[2018-12-01] MEDS ORDERED: METOCLOPRAMIDE 5 MG/ML, 2ML ONE (14:52)
[2018-12-01] MEDS ORDERED: DIPHENHYDRAMINE 50 MG/ML, 1ML ONE (14:52)
[2018-12-01] MEDS ORDERED: METOCLOPRAMIDE 5 MG/ML, 2ML IM ONE (15:00)
[2018-12-01] MEDS ORDERED: DIPHENHYDRAMINE 50 MG/ML, 1ML IM ONE (15:00)
[2018-12-01 15:42] LABS: BASOPHILS # (AUTO) 0.03 x10^3/uL (0-0.1); BASOPHILS % (AUTO) 0 % (0-1); EOSINOPHILS # (AUTO) 0.24 x10^3/uL (0-0.4); EOSINOPHILS % (AUTO) 3 % (1-7); LYMPHOCYTES # (AUTO) 2.89 x10^3/uL (1-3.4); LYMPHOCYTES % (AUTO) 36 % (22-44); MD NO; MEAN CORPUSCULAR HEMOGLOBIN 27.2 pg (27.0-34.8); MEAN CORPUSCULAR HGB CONC 32.5 g/dL (32.4-35.8); MEAN CORPUSCULAR VOLUME 83.7 fL (80-100); MEAN PLATELET VOLUME 7.7 fL (7.4-10.4); MONOCYTES # (AUTO) 0.68 x10^3/uL (0.2-0.8); MONOCYTES % (AUTO) 8 % (2-9); NEUTROPHILS # (AUTO) 4.31 x10^3/uL (1.8-6.8); NEUTROPHILS % (AUTO) 53 % (42-75); PLATELET COUNT 312 x10^3/uL (130-400); RED BLOOD COUNT 4.75 x10^6/uL (3.82-5.3); RED CELL DISTRIBUTION WIDTH 16.4 % (9.6-15.2)
[2018-12-01 15:53] LABS: ANION GAP 5 mmol/L (5-15); CALCIUM 8.7 mg/dL (8.5-10.1); CHLORIDE 111 mmol/L (98-107); CREATININE 1.24 mg/dL (0.55-1.02)
--- NOTE | 2018-12-01 16:06 | NUR ---
Patient in CT.
--- NOTE | 2018-12-01 16:24 | NUR ---
Patient states she is allergic to ASA and ibuprofen, NOT toradol.
[2018-12-01] MEDS ORDERED: KETOROLAC 30 MG/1 ML ONE (16:27)
[2018-12-01] MEDS ORDERED: KETOROLAC 30 MG/1 ML IM ONE (16:30)
--- NOTE | 2018-12-01 16:59 | NUR ---
Patient/Caregiver given discharge instructions and they have confirmed that they understand the instructions. Patient ambulatory with steady gait.
== END 2018-12-01 16:59 | disposition home or self-care (01) ==
LOC: ED 14:48
DX: G43.919 Migraine, unspecified, intractable, without status migrainosus (principal); F17.200 Nicotine dependence, unspecified, uncomplicated; E11.9 Type 2 diabetes mellitus without complications
CPT/HCPCS: 36415; 70450; 80048; 82040; 85025; 96372; 99284; J1200; J2765

== ENCOUNTER 2019-02-17 22:00 | Emergency (ER) | payer MEDICAID ==
[~2019-02-17] VITALS: Ht 167.6 cm; Wt 90.1 kg
[2019-02-17 22:44] LABS: BASOPHILS # (AUTO) 0.06 x10^3/uL (0-0.1); BASOPHILS % (AUTO) 1 % (0-1); EOSINOPHILS # (AUTO) 0.55 x10^3/uL (0-0.4); EOSINOPHILS % (AUTO) 6 % (1-7); LYMPHOCYTES # (AUTO) 3.11 x10^3/uL (1-3.4); LYMPHOCYTES % (AUTO) 32 % (22-44); MD NO; MEAN CORPUSCULAR HEMOGLOBIN 28.4 pg (27.0-34.8); MEAN CORPUSCULAR HGB CONC 32.1 g/dL (32.4-35.8); MEAN CORPUSCULAR VOLUME 88.4 fL (80-100); MEAN PLATELET VOLUME 7.4 fL (7.4-10.4); MONOCYTES # (AUTO) 0.63 x10^3/uL (0.2-0.8); MONOCYTES % (AUTO) 7 % (2-9); NEUTROPHILS # (AUTO) 5.32 x10^3/uL (1.8-6.8); NEUTROPHILS % (AUTO) 55 % (42-75); PLATELET COUNT 280 x10^3/uL (130-400); RED BLOOD COUNT 4.76 x10^6/uL (3.82-5.3); RED CELL DISTRIBUTION WIDTH 15.3 % (9.6-15.2)
--- NOTE | 2019-02-17 22:46 | NUR ---
PT TO US VIA [facility] AT THIS TIME.
[2019-02-17 22:56] LABS: ALBUMIN 3.9 g/dL (3.4-5.0); ANION GAP 8 mmol/L (5-15); CALCIUM 9.6 mg/dL (8.5-10.1); CHLORIDE 105 mmol/L (98-107); CREATININE 1.07 mg/dL (0.55-1.02)
[2019-02-17 23:55] LABS: CULTURE INDICATED? YES; MICROSCOPIC INDICATED
--- NOTE | 2019-02-17 23:58 | NUR ---
Assist RN: patient discharged with prescription and instruction. verbalized understanding.
[2019-02-17 23:59] VITALS: BP 109/57
== END 2019-02-18 00:01 | disposition home or self-care (01) ==
LOC: ED 22:29
DX: R10.31 Right lower quadrant pain (principal); G40.909 Epilepsy, unspecified, not intractable, without status epilepticus; E11.9 Type 2 diabetes mellitus without complications; J44.9 Chronic obstructive pulmonary disease, unspecified; F31.9 Bipolar disorder, unspecified; Z72.9 Problem related to lifestyle, unspecified; Z90.49 Acquired absence of other specified parts of digestive tract
CPT/HCPCS: 36415; 76830; 80048; 81001; 82040; 84702; 85025; 87086; 99284

== ENCOUNTER 2019-07-02 10:31 | Emergency (ER) | payer MEDICAID, OTHER ==
[~2019-07-02] VITALS: Ht 167.6 cm; Wt 91.9 kg
[~2019-07-02 10:31] MED LIST changes: -ALBU6.7H INH; +ALBU6.7H8 INH; -TOPI25CA PO; +TOPI25CA3 PO
--- NOTE | 2019-07-02 10:56 | NUR ---
HONEY BLENDER: PT TO ROOM FROM LOBBY, AMBULATORY
--- NOTE | 2019-07-02 11:08 | NUR ---
PT PRESENTING TO ER FOR SUDDEN SHARP RLQ PAIN STARTING THIS MORNING. NO N/V/D, NO URINARY SYMPTOMS OR BACK PAIN. LAB AT BEDSIDE FOR COLLECTION. PT UP TO RESTROOM WITHOUT ASSISTANCE NEEDED TO OBTAIN URINE SAMPLE. VSS AT THIS TIME. CALL LIGHT WITHIN REACH. AWAITING MD ASSESSMENT AND FURTHER ORDERS AT THIS TIME
--- NOTE | 2019-07-02 11:16 | NUR ---
UA COLLECTED AND SENT TO LAB.
[2019-07-02 11:24] LABS: BASOPHILS # (AUTO) 0.03 x10^3/uL (0-0.1); BASOPHILS % (AUTO) 0 % (0-1); EOSINOPHILS # (AUTO) 0.21 x10^3/uL (0-0.4); EOSINOPHILS % (AUTO) 2 % (1-7); LYMPHOCYTES # (AUTO) 2.52 x10^3/uL (1-3.4); LYMPHOCYTES % (AUTO) 26 % (22-44); MD NO; MEAN CORPUSCULAR HEMOGLOBIN 29.2 pg (27.0-34.8); MEAN CORPUSCULAR HGB CONC 32.8 g/dL (32.4-35.8); MEAN CORPUSCULAR VOLUME 89.3 fL (80-100); MEAN PLATELET VOLUME 7.8 fL (7.4-10.4); MONOCYTES % (AUTO) 6 % (2-9); NEUTROPHILS # (AUTO) 6.21 x10^3/uL (1.8-6.8); NEUTROPHILS % (AUTO) 65 % (42-75); PLATELET COUNT 270 x10^3/uL (130-400); RED BLOOD COUNT 5.05 x10^6/uL (3.82-5.3); RED CELL DISTRIBUTION WIDTH 14.9 % (9.6-15.2)
[2019-07-02 11:36] LABS: MICROSCOPIC INDICATED
[2019-07-02 11:37] LABS: CULTURE INDICATED? YES
[2019-07-02 11:38] LABS: ALBUMIN 3.9 g/dL (3.4-5.0); ANION GAP 7 mmol/L (5-15); CALCIUM 9.1 mg/dL (8.5-10.1); CHLORIDE 108 mmol/L (98-107); CREATININE 0.94 mg/dL (0.55-1.02)
--- NOTE | 2019-07-02 11:50 | NUR ---
CT PENDING: NEED IV IN PLACE
--- NOTE | 2019-07-02 12:11 | NUR ---
IV PLACED, CT CALLED TO UPDATE AND SHIRT FINISHER PT FOR TESTING
[2019-07-02] MEDS ORDERED: OMNIPAQUE 350 MG/ML, 100ML BOTTLE ONE (12:34)
[2019-07-02 12:51] VITALS: BP 116/71
--- NOTE | 2019-07-02 12:51 | NUR ---
PT OOB TO TOILET. VSS. C/O 03/09 ABD PAIN. TALKING ON PHONE CALMLY. CT PENDING. DENIES NAUSEA. CALL العراقي IN REACH.
--- NOTE | 2019-07-02 12:52 | NUR ---
ALL RESULTS BACK AT THIS TIME.
== END 2019-07-02 13:34 | disposition home or self-care (01) ==
LOC: ED 13:21
DX: R10.31 Right lower quadrant pain (principal); R11.0 Nausea; J44.9 Chronic obstructive pulmonary disease, unspecified; E11.9 Type 2 diabetes mellitus without complications; G40.909 Epilepsy, unspecified, not intractable, without status epilepticus; G43.909 Migraine, unspecified, not intractable, without status migrainosus; F17.200 Nicotine dependence, unspecified, uncomplicated; Z90.49 Acquired absence of other specified parts of digestive tract
CPT/HCPCS: 36415; 74177; 80048; 81001; 82040; 84703; 85025; 87086; 99284; Q9967

== ENCOUNTER 2019-07-09 10:24 | Emergency (ER) | payer SELFPAY ==
[~2019-07-09] VITALS: Ht 170.2 cm; Wt 92.3 kg
--- NOTE | 2019-07-09 10:50 | NUR ---
A&OX4, RESP EVEN & UNLABORED, SPEECH CLEAR, SKIN WNL. C/O PAIN AND LUMP TO UMBILICUS AREA - STARTED LAST NOC, NAUSEA. TYLENOL AT 0950 TODAY. LAST ORAL INTAKE: 0700. LAST BM: YESTERDAY. 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 HX: HERNIA
[2019-07-09] MEDS ORDERED: ONDANSETRON 2MG/ML, 2ML IVPush ONE (11:00)
[2019-07-09] MEDS ORDERED: SODIUM CHLORIDE FLUSH 10ML SYR IVF ONE (11:00)
[2019-07-09] MEDS ORDERED: ONDANSETRON 2MG/ML, 2ML ONE (11:12)
[2019-07-09 11:13] LABS: BASOPHILS # (AUTO) 0.06 x10^3/uL (0-0.1); BASOPHILS % (AUTO) 1 % (0-1); EOSINOPHILS # (AUTO) 0.15 x10^3/uL (0-0.4); EOSINOPHILS % (AUTO) 2 % (1-7); LYMPHOCYTES # (AUTO) 1.86 x10^3/uL (1-3.4); LYMPHOCYTES % (AUTO) 30 % (22-44); MD NO; MEAN CORPUSCULAR HEMOGLOBIN 28.3 pg (27.0-34.8); MEAN CORPUSCULAR HGB CONC 32.4 g/dL (32.4-35.8); MEAN CORPUSCULAR VOLUME 87.3 fL (80-100); MEAN PLATELET VOLUME 7.3 fL (7.4-10.4); MONOCYTES # (AUTO) 0.43 x10^3/uL (0.2-0.8); MONOCYTES % (AUTO) 7 % (2-9); NEUTROPHILS # (AUTO) 3.71 x10^3/uL (1.8-6.8); NEUTROPHILS % (AUTO) 60 % (42-75); PLATELET COUNT 301 x10^3/uL (130-400); RED BLOOD COUNT 4.65 x10^6/uL (3.82-5.3); RED CELL DISTRIBUTION WIDTH 15.4 % (9.6-15.2)
[2019-07-09 11:25] LABS: ALBUMIN 3.6 g/dL (3.4-5.0); ANION GAP 9 mmol/L (5-15); CALCIUM 8.9 mg/dL (8.5-10.1); CHLORIDE 111 mmol/L (98-107)
--- NOTE | 2019-07-09 11:26 | NUR ---
IV ATTEMPTED X1; UNSUCCESSFUL
[2019-07-09 11:28] LABS: ALANINE AMINOTRANSFERASE 26 U/L (12-78); ALKALINE PHOSPHATASE 80 U/L (45-117); BILIRUBIN,TOTAL 0.5 mg/dL (0.2-1.0); CREATININE 0.96 mg/dL (0.55-1.02); TOTAL PROTEIN 6.9 g/dL (6.4-8.2)
[2019-07-09] MEDS ORDERED: TRAZ-96 PO (11:37)
[2019-07-09] MEDS ORDERED: BUDE10.2 INH (11:37)
--- NOTE | 2019-07-09 11:37 | NUR ---
QUICK CATH URINE SPECIMEN OBTAINED.
[2019-07-09 11:55] LABS: HCG UR SG 1.031 (1.003-1.030); MICROSCOPIC AUTO
[2019-07-09 11:58] LABS: CULTURE INDICATED? NO
[2019-07-09] MEDS ORDERED: POTASSIUM CHLORIDE 20 MEQ TAB.ER.PRT PO ONE (12:00)
[2019-07-09] MEDS ORDERED: ONDANSETRON ODT 4 MG PO ONE (12:00)
[2019-07-09] MEDS ORDERED: POTASSIUM CHLORIDE 20 MEQ TAB.ER.PRT ONE (12:04)
[2019-07-09] MEDS ORDERED: ONDANSETRON ODT 4 MG ONE (12:04)
--- NOTE | 2019-07-09 12:06 | NUR ---
PT SITTING QUIETLY ON GURNEY, PLAYING GAME ON CELL PHONE. SIDE RAILS UP X2, CALL LIGHT W/IN REACH. DILLAN AT BS.
--- NOTE | 2019-07-09 12:09 | NUR ---
KDUR & ZOFRAN GIVEN PER EMAR
--- NOTE | 2019-07-09 12:30 | NUR ---
PT SITTING QUIETLY ON GURNEY, PLAYING GAME ON CELL PHONE, REPORTS IMPROVEMENT IN NAUSEA SX, REPORTS CONTINUING PAIN.
--- NOTE | 2019-07-09 13:25 | NUR ---
DR KERN BS FOR EXAM
--- NOTE | 2019-07-09 14:15 | NUR ---
CT WAITING FOR IV ACCESS
--- NOTE | 2019-07-09 14:30 | NUR ---
PT DOZING ON BED; EASILY AWAKENED. INFORMED PT OF NEED FOR IV ACCESS.
--- NOTE | 2019-07-09 14:40 | NUR ---
U/S IV ASSISTANCE REQUESTED.
--- NOTE | 2019-07-09 14:47 | NUR ---
TASK RN: PLACED PIV. CT CALLED
[2019-07-09] MEDS ORDERED: OMNIPAQUE 350 MG/ML, 100ML BOTTLE ONE (15:07)
[2019-07-09 16:00] VITALS: BP 120/79
== END 2019-07-09 16:24 | disposition home or self-care (01) ==
LOC: ED 11:14
DX: K52.9 Noninfective gastroenteritis and colitis, unspecified (principal); G43.909 Migraine, unspecified, not intractable, without status migrainosus; Z88.6 Allergy status to analgesic agent; Z88.1 Allergy status to other antibiotic agents; Z88.0 Allergy status to penicillin
CPT/HCPCS: 36415; 74022; 74177; 80053; 81001; 81025; 83690; 85025; 99284; Q0162; Q9967

== ENCOUNTER 2019-07-26 05:24 | Emergency (ER) | payer SELFPAY ==
[~2019-07-26] VITALS: Ht 167.6 cm; Wt 94.5 kg
[~2019-07-26 05:24] MED LIST changes: +BUDE10.2 INH; +TRAZ-96 PO
[2019-07-26 05:28] VITALS: BP 106/74
== END 2019-07-26 05:50 | disposition home or self-care (01) ==
LOC: ED 05:44
DX: L20.84 Intrinsic (allergic) eczema (principal); Z90.49 Acquired absence of other specified parts of digestive tract
CPT/HCPCS: 99282

== ENCOUNTER 2019-08-14 05:23 | Emergency (ER) | payer MEDICAID, OTHER ==
[~2019-08-14] VITALS: Ht 167.6 cm; Wt 94.8 kg
[~2019-08-14 05:23] MED LIST changes: -TRAZ-137 PO; +TRAZ-175 PO
[2019-08-14 05:27] VITALS: BP 116/73
--- NOTE | 2019-08-14 05:44 | NUR ---
PT C/O RIGHT FLANK PAIN STATES "I HAVE ANOTHER KIDNEY STONE, I KNOW WHAT IT FEELS LIKE". PT DENIES PAIN OR BURNING WITH URINATION. PT DENIES OTHER C/O AT THIS TIME. PT CONNECTED TO MONITORING, CALL LIGHT WITHIN REACH, ALL SAFETY MEASURES IN PLACE.
[2019-08-14] MEDS ORDERED: ONDANSETRON 2MG/ML, 2ML IVPush ONE (06:00)
[2019-08-14] MEDS ORDERED: SODIUM CHLORIDE FLUSH 10ML SYR IVF ONE (06:00)
[2019-08-14 06:06] LABS: BASOPHILS # (AUTO) 0.12 x10^3/uL (0-0.1); BASOPHILS % (AUTO) 1 % (0-1); EOSINOPHILS # (AUTO) 0.27 x10^3/uL (0-0.4); EOSINOPHILS % (AUTO) 3 % (1-7); LYMPHOCYTES # (AUTO) 2.98 x10^3/uL (1-3.4); LYMPHOCYTES % (AUTO) 29 % (22-44); MD NO; MEAN CORPUSCULAR HEMOGLOBIN 29.3 pg (27.0-34.8); MEAN CORPUSCULAR HGB CONC 33.1 g/dL (32.4-35.8); MEAN CORPUSCULAR VOLUME 88.6 fL (80-100); MEAN PLATELET VOLUME 7.6 fL (7.4-10.4); MONOCYTES # (AUTO) 0.76 x10^3/uL (0.2-0.8); MONOCYTES % (AUTO) 8 % (2-9); NEUTROPHILS # (AUTO) 6.04 x10^3/uL (1.8-6.8); NEUTROPHILS % (AUTO) 59 % (42-75); PLATELET COUNT 329 x10^3/uL (130-400); RED CELL DISTRIBUTION WIDTH 15.7 % (9.6-15.2)
[2019-08-14] MEDS ORDERED: MORPHINE SULFATE 4 MG/ML, 1ML ONE ×2 (06:06→07:01)
[2019-08-14] MEDS ORDERED: ONDANSETRON 2MG/ML, 2ML ONE (06:06)
[2019-08-14 06:08] LABS: MICROSCOPIC INDICATED
[2019-08-14 06:12] LABS: ALBUMIN 3.7 g/dL (3.4-5.0); ANION GAP 8 mmol/L (5-15); CALCIUM 8.9 mg/dL (8.5-10.1); CHLORIDE 108 mmol/L (98-107); CREATININE 1.14 mg/dL (0.55-1.02)
[2019-08-14] MEDS: MORPHINE SULFATE 4 MG/ML, 1ML IVPush PRN ×2 (06:31→07:05)
--- NOTE | 2019-08-14 06:34 | NUR ---
LABS DRAWN, IMAGING IN ROOM AT THIS TIME, PT MEDICATED PER MAR. DENIES FURTHER NEEDS AT THIS TIME.
--- NOTE | 2019-08-14 07:05 | NUR ---
REC BS REPORT CO INCREASING PAIN MEDS GIVEN PER ORDERS
[2019-08-14 08:30] LABS: MICROSCOPIC INDICATED
--- NOTE | 2019-08-14 08:34 | NUR ---
STRAIGHT CATH COLLECTED
--- NOTE | 2019-08-14 08:54 | NUR ---
Report from AGA Herrera.
--- NOTE | 2019-08-14 09:10 | NUR ---
Resting in [facility]. No needs. NAD.
--- NOTE | 2019-08-14 09:44 | NUR ---
Patient/Caregiver given discharge instructions and they have confirmed that they understand the instructions. Patient ambulatory with steady gait.
== END 2019-08-14 09:46 | disposition home or self-care (01) ==
LOC: ED 07:16
DX: N30.01 Acute cystitis with hematuria (principal); N10 Acute pyelonephritis; J44.9 Chronic obstructive pulmonary disease, unspecified; G43.909 Migraine, unspecified, not intractable, without status migrainosus; E11.9 Type 2 diabetes mellitus without complications; G40.909 Epilepsy, unspecified, not intractable, without status epilepticus; F17.200 Nicotine dependence, unspecified, uncomplicated
CPT/HCPCS: 36415; 76770; 80048; 81001; 82040; 84703; 85025; 87077; 87086; 96374; 96375; 96376; 99284; J2270; J2405

== ENCOUNTER 2020-03-02 19:00 | Emergency (ER) | payer MEDICAID ==
[~2020-03-02] VITALS: Ht 170.2 cm; Wt 97.6 kg
--- NOTE | 2020-03-02 20:20 | NUR ---
PT SITTING CROSS LEGGED ON GURENY, WIPING BOTTOM OF HER FEET.
--- NOTE | 2020-03-02 20:23 | NUR ---
PT C/O LOW BACK PAIN RADIATING DOWN BOTH LEGS; STARTED YESTERDAY AFTER WORK. WORKS AT [employer]; [employer]. HX SCIATICA. TYLENOL (LAST DOSE 1729) AND IBUPROFEN (LAST DOSE 1629) AND GABAPENTIN (TAKEN AT 1629) W/OUT RELIEF. PAIN W/ WEIGHTBEARING. C/O SWELLING TO LE'S BILAT. PT'S SPOUSE IN ROOM. BOTTOM OF PT'S FEET EXCEEDINGLY DIRTY, PT STATES SHE'S BEEN WALKING AROUND IN FLIP FLOPS
[2020-03-02] MEDS ORDERED: LEVO137T3 PO (20:30)
[2020-03-02] MEDS ORDERED: OXCA150T18 PO (20:30)
[2020-03-02] MEDS ORDERED: GABA-826 PO (20:30)
[2020-03-02] MEDS ORDERED: IBUP-1222 PO (20:30)
[2020-03-02 20:34] VITALS: BP 108/71
--- NOTE | 2020-03-02 21:57 | NUR ---
REPORT FROM AGA TAYLOR. PT CARE RESPONSIBILITIES ASSUMED.
[2020-03-02 22:14] LABS: BASOPHILS # (AUTO) 0.05 x10^3/uL (0-0.1); BASOPHILS % (AUTO) 1 % (0-1); EOSINOPHILS % (AUTO) 6 % (1-7); LYMPHOCYTES # (AUTO) 2.84 x10^3/uL (1-3.4); LYMPHOCYTES % (AUTO) 40 % (22-44); MD NO; MEAN CORPUSCULAR HEMOGLOBIN 28.9 pg (27.0-34.8); MEAN CORPUSCULAR HGB CONC 32.9 g/dL (32.4-35.8); MEAN CORPUSCULAR VOLUME 87.7 fL (80-100); MONOCYTES # (AUTO) 0.63 x10^3/uL (0.2-0.8); MONOCYTES % (AUTO) 9 % (2-9); NEUTROPHILS % (AUTO) 45 % (42-75); PLATELET COUNT 283 x10^3/uL (130-400); RED BLOOD COUNT 4.42 x10^6/uL (3.82-5.3); RED CELL DISTRIBUTION WIDTH 15.4 % (9.6-15.2)
[2020-03-02 22:27] LABS: ALBUMIN 3.7 g/dL (3.4-5.0); CALCIUM 8.5 mg/dL (8.5-10.1); CHLORIDE 108 mmol/L (98-107); CREATININE 1.14 mg/dL (0.55-1.02)
[2020-03-02] MEDS ORDERED: POTASSIUM CHLORIDE 10% 40 MEQ/30 ML UDC PO ONE (23:30)
[2020-03-03 03:45] LABS: ANION GAP 9 mmol/L (5-15)
== END 2020-03-03 | disposition home or self-care (01) ==
LOC: ED 22:14
DX: M54.5 Low back pain (principal); G89.29 Other chronic pain; E87.6 Hypokalemia; M79.661 Pain in right lower leg; E11.9 Type 2 diabetes mellitus without complications; J44.9 Chronic obstructive pulmonary disease, unspecified
CPT/HCPCS: 36415; 80048; 82040; 85025; 93970; 99284

== ENCOUNTER 2020-03-19 09:05 | Emergency (ER) | payer MEDICAID ==
[~2020-03-19] VITALS: Ht 170.2 cm; Wt 96.5 kg
[~2020-03-19 09:05] MED LIST changes: +GABA-826 PO; +IBUP-1222 PO; +LEVO137T3 PO; +OXCA150T18 PO
[2020-03-19 09:32] VITALS: BP 120/88
--- NOTE | 2020-03-19 09:59 | NUR ---
REGISTERED PHARMACY TECHNICIAN: PT TO ROOM FROM [facility]
[2020-03-19] MEDS ORDERED: LIDOCAINE 1%-EPI 1:100K, 20ML ONE (10:53)
[2020-03-19] MEDS ORDERED: LIDOCAINE-MPF 1%, 5ML ONE (10:59)
[2020-03-19] MEDS ORDERED: LIDOCAINE 1%-EPI 1:100K, 20ML SQ ONE (11:00)
== END 2020-03-19 11:54 | disposition home or self-care (01) ==
LOC: ED 10:09
DX: S63.296A Dislocation of distal interphalangeal joint of right little finger, initial encounter (principal); J44.9 Chronic obstructive pulmonary disease, unspecified; E11.9 Type 2 diabetes mellitus without complications; Z90.49 Acquired absence of other specified parts of digestive tract; Z86.39 Personal history of other endocrine, nutritional and metabolic disease; W19.XXXA Unspecified fall, initial encounter; Y93.89 Activity, other specified; Y92.488 Other paved roadways as the place of occurrence of the external cause; Y99.8 Other external cause status
CPT/HCPCS: 26700; 26770; 99284

== ENCOUNTER 2020-03-19 21:29 | Emergency (ER) | payer MEDICAID ==
[~2020-03-19] VITALS: Ht 167.6 cm; Wt 90.0 kg
[2020-03-19 21:32] VITALS: BP 105/75
--- NOTE | 2020-03-19 21:37 | NUR ---
PT WITH ABD PAIN THAT STARTED YESTERDAY AND TODAY TOOK 5000MG OF NAPROXEN AT APPROX 1700 TODAY BECAUSE OF PAIN IN HER ABD. PT STATES SHE DID NOT KNOW THAT 5000MG WAS TOO MUCH TO TAKE. DENIES SI/HI. PT ATTACHED TO ALL MONITORS. VS STABLE. SIGNIFICANT OTHER AT BEDSIDE.
[2020-03-19] MEDS ORDERED: ONDANSETRON ODT 4 MG PO ONE (22:00)
--- NOTE | 2020-03-19 22:16 | NUR ---
PT RECIEVED 4MG ZOFRAN ODT BOOKS SALESPERSON WITH [facility]
[2020-03-19 22:28] LABS: ALBUMIN 4.3 g/dL (3.4-5.0); ANION GAP 9 mmol/L (5-15); CHLORIDE 111 mmol/L (98-107)
[2020-03-19 22:31] LABS: ALANINE AMINOTRANSFERASE 28 U/L (12-78); ALKALINE PHOSPHATASE 115 U/L (45-117); BILIRUBIN,TOTAL 7.8 mg/dL (0.2-1.0); CALCIUM 9.4 mg/dL (8.5-10.1); CREATININE 1.22 mg/dL (0.55-1.02); TOTAL PROTEIN 7.5 g/dL (6.4-8.2)
--- NOTE | 2020-03-19 22:41 | NUR ---
LAB CALLED ME AND STATES THAT CBC NEEDS TO BE REDRAWN D/T CLOTTING. AMANDO IN TO REDRAW LABS, PT REFUSED. MARCO A DICKEY NOTIFIED.
== END 2020-03-19 23:45 | disposition home or self-care (01) ==
LOC: ED 22:15
DX: R10.13 Epigastric pain (principal); F15.129 Other stimulant abuse with intoxication, unspecified; R00.0 Tachycardia, unspecified; R11.0 Nausea; R10.9 Unspecified abdominal pain; E11.9 Type 2 diabetes mellitus without complications; Z72.9 Problem related to lifestyle, unspecified
CPT/HCPCS: 36415; 80053; 83690; 93005; 99284

== ENCOUNTER 2020-05-15 09:32 | Inpatient (IN) | payer MEDICAID ==
[~2020-05-15] VITALS: Ht 167.6 cm; Wt 96.1 kg
[2020-05-15] MEDS ORDERED: DOCUSATE 100 MG CAPSULE PO PRN (11:00)
[2020-05-15] MEDS ORDERED: BISACODYL 10 MG SUPP PR PRN (11:00)
[2020-05-15] MEDS ORDERED: POLYETHYLENE GLYCOL 17 GM PACKET PO PRN (11:00)
[2020-05-15] MEDS ORDERED: ONDANSETRON ODT 4 MG PO PRN (11:00)
[2020-05-15] MEDS ORDERED: PLEASE ENTER HEIGHT AND WEIGHT MC SCH (12:00)
[2020-05-15 12:56] VITALS: BP 117/80
[2020-05-15] MEDS: ACETAMINOPHEN 325 MG TABLET PO PRN (13:27)
[2020-05-15 13:49] LABS: BASOPHILS % (AUTO) 1 % (0-1); EOSINOPHILS % (AUTO) 2 % (1-7); LYMPHOCYTES % (AUTO) 17 % (22-44); MEAN CORPUSCULAR HEMOGLOBIN 29.5 pg (27.0-34.8); MEAN CORPUSCULAR HGB CONC 32.5 g/dL (32.4-35.8); MEAN PLATELET VOLUME 7.3 fL (7.4-10.4); MONOCYTES % (AUTO) 8 % (2-9); NEUTROPHILS % (AUTO) 74 % (42-75); PLATELET COUNT 331 x10^3/uL (130-400); RED BLOOD COUNT 5.08 x10^6/uL (3.82-5.3); RED CELL DISTRIBUTION WIDTH 14.7 % (9.6-15.2)
[2020-05-15 13:51] LABS: MD NO
[2020-05-15] MEDS ORDERED: OMEP-110 PO (13:54)
[2020-05-15] MEDS ORDERED: GABA300C PO (13:54)
[2020-05-15] MEDS ORDERED: ZIPR20CA2 PO (13:54)
[2020-05-15 14:02] LABS: ALANINE AMINOTRANSFERASE 31 U/L (12-78); ALBUMIN 3.8 g/dL (3.4-5.0); ANION GAP 3 mmol/L (5-15); CALCIUM 8.9 mg/dL (8.5-10.1); CHLORIDE 108 mmol/L (98-107); CREATININE 1.21 mg/dL (0.55-1.02)
[2020-05-15 14:12] LABS: ALKALINE PHOSPHATASE 118 U/L (45-117); BILIRUBIN,TOTAL 0.3 mg/dL (0.2-1.0); TOTAL PROTEIN 7.5 g/dL (6.4-8.2)
[2020-05-15] MEDS ORDERED: LORazepam 1MG TABLET PO PRN (16:30)
[2020-05-15] MEDS: LEVOTHYROXINE 100 MCG TABLET PO SCH (16:47)
[2020-05-15 19:12] VITALS: BP 100/65
[2020-05-15] MEDS: ZIPRASIDONE 20MG CAPSULE PO SCH (20:29)
[2020-05-16] MEDS: LEVOTHYROXINE 100 MCG TABLET PO SCH (05:57)
[2020-05-16 07:00] VITALS: BP 115/73
[2020-05-16 08:35] LABS: CHOL/HDL RATIO 3.3; LDL/HDL RATIO 1.8 (0.5-3.0)
[2020-05-16] MEDS: ARIPIPRAZOLE 15 MG TABLET PO SCH (09:31)
[2020-05-16] MEDS: ACETAMINOPHEN 325 MG TABLET PO PRN (12:06)
[2020-05-16] MEDS ORDERED: ALBUTEROL HFA 90 MCG/SPRAY INH PRN (12:30)
[2020-05-16] MEDS ORDERED: ARIPIPRAZOLE 10 MG TABLET PO SCH (12:30)
[2020-05-16] MEDS ORDERED: TRAZODONE 50MG TABLET PO PRN (12:30)
[2020-05-16] MEDS: OMEPRAZOLE 20 MG CAPSULE.DR PO SCH (13:30)
[2020-05-16] MEDS: GABAPENTIN 300 MG CAPSULE PO SCH ×3 (13:30→20:27)
[2020-05-16] MEDS: LEVOTHYROXINE 137 MCG TABLET PO SCH (16:31)
[2020-05-16] MEDS ORDERED: ZIPRASIDONE 20MG CAPSULE PO SCH (17:00)
[2020-05-16 19:24] VITALS: BP 98/56
[2020-05-16] MEDS: NITROFURANTOIN (MACROBID) 100 MG CAPSULE PO SCH (20:27)
[2020-05-16] MEDS: ZIPRASIDONE 20MG CAPSULE PO SCH (20:28)
[2020-05-16] MEDS: FLUTICASONE/VILANTEROL 200-25MCG/INH INH SCH ×2 (20:58→21:00)
[2020-05-17] MEDS: LEVOTHYROXINE 137 MCG TABLET PO SCH (06:13)
[2020-05-17 07:08] VITALS: BP 111/73
[2020-05-17] MEDS: FLUTICASONE/VILANTEROL 200-25MCG/INH INH SCH (09:00)
[2020-05-17] MEDS: GABAPENTIN 300 MG CAPSULE PO SCH ×3 (10:07→20:09)
[2020-05-17] MEDS: NITROFURANTOIN (MACROBID) 100 MG CAPSULE PO SCH ×2 (10:07→20:08)
[2020-05-17] MEDS: ARIPIPRAZOLE 15 MG TABLET PO SCH (10:08)
[2020-05-17] MEDS: OMEPRAZOLE 20 MG CAPSULE.DR PO SCH (10:08)
[2020-05-17] MEDS ORDERED: hydrOXyzine 50MG TABLET PO PRN (17:00)
[2020-05-17] MEDS: ZIPRASIDONE 40MG CAPSULE PO SCH (20:09)
[2020-05-18] MEDS: LEVOTHYROXINE 137 MCG TABLET PO SCH (05:10)
[2020-05-18 07:28] VITALS: BP 111/79
[2020-05-18] MEDS: OMEPRAZOLE 20 MG CAPSULE.DR PO SCH (08:47)
[2020-05-18] MEDS: NITROFURANTOIN (MACROBID) 100 MG CAPSULE PO SCH ×2 (08:47→20:21)
[2020-05-18] MEDS: ARIPIPRAZOLE 15 MG TABLET PO SCH (08:47)
[2020-05-18] MEDS: GABAPENTIN 300 MG CAPSULE PO SCH ×3 (08:47→20:21)
[2020-05-18] MEDS: FLUTICASONE/VILANTEROL 200-25MCG/INH INH SCH ×2 (08:49→09:52)
[2020-05-18] MEDS ORDERED: FLU VACCINE PER PHARMACY IM ONE (09:00)
[2020-05-18] MEDS: ACETAMINOPHEN 325 MG TABLET PO PRN (14:37)
[2020-05-18 19:33] VITALS: BP 111/75
[2020-05-18] MEDS: ZIPRASIDONE 40MG CAPSULE PO SCH (20:21)
[2020-05-19] MEDS: LEVOTHYROXINE 137 MCG TABLET PO SCH (06:03)
[2020-05-19] MEDS: GABAPENTIN 300 MG CAPSULE PO SCH ×3 (08:21→20:19)
[2020-05-19] MEDS: NITROFURANTOIN (MACROBID) 100 MG CAPSULE PO SCH (08:21)
[2020-05-19] MEDS: OMEPRAZOLE 20 MG CAPSULE.DR PO SCH (08:22)
[2020-05-19] MEDS: ARIPIPRAZOLE 15 MG TABLET PO SCH (08:36)
[2020-05-19] MEDS: ACETAMINOPHEN 325 MG TABLET PO PRN (10:15)
[2020-05-19] MEDS ORDERED: MUPIROCIN OINT 2%, 22GM TP SCH (18:00)
[2020-05-19 20:00] VITALS: BP 119/84
[2020-05-19] MEDS: ZIPRASIDONE 40MG CAPSULE PO SCH (20:19)
[2020-05-20] MEDS: LEVOTHYROXINE 137 MCG TABLET PO SCH (06:02)
[2020-05-20] MEDS: GABAPENTIN 300 MG CAPSULE PO SCH (08:42)
[2020-05-20] MEDS: FLUTICASONE/VILANTEROL 200-25MCG/INH INH SCH (08:42)
[2020-05-20] MEDS: ARIPIPRAZOLE 15 MG TABLET PO SCH (08:42)
[2020-05-20] MEDS: OMEPRAZOLE 20 MG CAPSULE.DR PO SCH (08:42)
[2020-05-20] MEDS: ACETAMINOPHEN 325 MG TABLET PO PRN (12:00)
[2020-05-20] MEDS ORDERED: ZIPR40CA2 PO (13:09)
== END 2020-05-20 13:55 | disposition home or self-care (01) | DRG 753 ==
LOC: 3E 09:32
PROVIDERS: ADMIT Psychiatry & Neurology Psychosomatic Medicine; ATTEND Psychiatry & Neurology Psychosomatic Medicine
DX: F31.30 Bipolar disorder, current episode depressed, mild or moderate severity, unspecified (principal); E03.9 Hypothyroidism, unspecified; F13.20 Sedative, hypnotic or anxiolytic dependence, uncomplicated; F15.20 Other stimulant dependence, uncomplicated; F60.3 Borderline personality disorder; F17.210 Nicotine dependence, cigarettes, uncomplicated; F41.1 Generalized anxiety disorder; F63.9 Impulse disorder, unspecified; G40.909 Epilepsy, unspecified, not intractable, without status epilepticus; G89.29 Other chronic pain; J45.909 Unspecified asthma, uncomplicated; K21.9 Gastro-esophageal reflux disease without esophagitis; K50.10 Crohn's disease of large intestine without complications; Z20.828 Contact with and (suspected) exposure to other viral communicable diseases; N20.0 Calculus of kidney; Z79.899 Other long term (current) drug therapy; Z87.442 Personal history of urinary calculi; Z91.19 Patient's noncompliance with other medical treatment and regimen
CPT/HCPCS: 36415; 71045; 80053; 80061; 84439; 84443; 84481; 84703; 85025; 87426; 93005; 94640; Q0177

== ENCOUNTER 2020-10-11 06:46 | Emergency (ER) | payer MEDICAID ==
[~2020-10-11] VITALS: Ht 167.6 cm; Wt 94.9 kg
[~2020-10-11 06:46] MED LIST changes: -CLIN300C8 PO; +CLIN300C9 PO; +GABA300C PO; +HYDR-1067 PO; -HYDR-3240 PO; +OMEP-110 PO
[2020-10-11 07:15] VITALS: BP 110/79
--- NOTE | 2020-10-11 07:19 | NUR ---
Pt ambulatory with steady gait to room. Multiple wounds on body, diffuse over arms and legs. Pt resting comfortably in bed, scrolling on phone. NADN. CHENG.
== END 2020-10-11 07:50 | disposition home or self-care (01) ==
LOC: ED 07:40
DX: L02.413 Cutaneous abscess of right upper limb (principal); L02.415 Cutaneous abscess of right lower limb; J44.9 Chronic obstructive pulmonary disease, unspecified
CPT/HCPCS: 82962; 99283

== ENCOUNTER 2020-11-13 05:20 | Emergency (ER) | payer MEDICAID ==
[~2020-11-13] VITALS: Ht 167.6 cm; Wt 96.2 kg
[~2020-11-13 05:20] MED LIST changes: -HYDR-1067 PO; +HYDR-2214 PO
[2020-11-13 05:24] VITALS: BP 134/98
== END 2020-11-13 05:41 | disposition home or self-care (01) ==
LOC: ED 05:30
DX: L03.113 Cellulitis of right upper limb (principal); Z90.49 Acquired absence of other specified parts of digestive tract
CPT/HCPCS: 99283

== ENCOUNTER 2020-12-16 22:00 | Emergency (ER) | payer MEDICAID ==
[~2020-12-16] VITALS: Ht 170.2 cm; Wt 94.6 kg
[~2020-12-16 22:00] MED LIST changes: +SULF-23 PO; -SULF1TAB24 PO
--- NOTE | 2020-12-16 22:22 | NUR ---
SUBASSEMBLER: PT. TO ROOM FROM LOBBY AT THIS TIME.
--- NOTE | 2020-12-16 22:23 | NUR ---
PT C/O OF RT EAR PAIN. REPORTS DARKISH GREEN DRAINAGE A COUPLE DAYS AGO. PAIN BEGAN 2 HOURS AGO AND REPORTS HEARING DEFICIT IN RT EAR. DENIES INJURY TO EAR. REPORTS TAKING METH THIS MORNING. ATTACHED TO MONITORS. BED IN LOW POSITION. VSS. CALL LGITH WITHIN REACH. PT CRYING IN DISTRESS DUE TO PAIN.
[2020-12-16] MEDS ORDERED: KETOROLAC 30 MG/1 ML IM ONE (22:30)
[2020-12-16] MEDS ORDERED: AMOXICILLIN 500 MG CAPSULE PO ONE (22:30)
[2020-12-16] MEDS ORDERED: KETOROLAC 30 MG/1 ML ONE (22:58)
[2020-12-16] MEDS ORDERED: AMOXICILLIN 500 MG CAPSULE ONE (22:59)
[2020-12-16 23:05] VITALS: BP 94/45
--- NOTE | 2020-12-16 23:12 | NUR ---
PT MEDICATED PER MAR, SPOKE WITH ERP REGARDING ALLERGIES, PT REPORTS HAVING SOME MILD ABODMINAL DISCOMFORT WITH PENICILLINS. PT NAD, VSS, NO OTHER CHANGE IN CONDITION, WCTM.
--- NOTE | 2020-12-16 23:41 | NUR ---
PT Given discharge instructions and they have confirmed that they understand the instructions. Patient ambulatory with steady gait. LEFT WITH . NAD. ALL QUESTIONS ANSWERED APPROPRIATE. DENIES ADDITIONAL NEEDS. NO BELONGINGS LEFT IN ROOM.
== END 2020-12-16 23:44 | disposition home or self-care (01) ==
LOC: ED 22:30
DX: H66.001 Acute suppurative otitis media without spontaneous rupture of ear drum, right ear (principal); E11.9 Type 2 diabetes mellitus without complications; J44.9 Chronic obstructive pulmonary disease, unspecified; F17.200 Nicotine dependence, unspecified, uncomplicated; Z90.49 Acquired absence of other specified parts of digestive tract; Z86.39 Personal history of other endocrine, nutritional and metabolic disease
CPT/HCPCS: 96372; 99283; J1885

== ENCOUNTER 2021-02-27 01:10 | Emergency (ER) | payer MEDICAID ==
[~2021-02-27] VITALS: Ht 167.6 cm; Wt 100.0 kg
[2021-02-27 01:15] VITALS: BP 117/56
--- NOTE | 2021-02-27 01:21 | NUR ---
ASSUMED CARE OF PATIENT. PATIENT BIB [facility] FOR POSSIBLE SEIZURE LIKE ACTIVITY. PT DENIES LOC. VS STABLE. NO ACUTE DISTRESS. CALL LIGHT IN PLACE. FAMILY AT BEDSIDE. WILL CONTINUE TO MONITOR.
--- NOTE | 2021-02-27 01:23 | NUR ---
PT SEEN BY DR PEACOCK
[2021-02-27 01:44] LABS: BASOPHILS % (AUTO) 1 % (0-1); EOSINOPHILS % (AUTO) 4 % (1-7); LYMPHOCYTES % (AUTO) 39 % (22-44); MEAN CORPUSCULAR HEMOGLOBIN 30.3 pg (27.0-34.8); MEAN CORPUSCULAR HGB CONC 34.3 g/dL (32.4-35.8); MEAN PLATELET VOLUME 7.3 fL (7.4-10.4); MONOCYTES % (AUTO) 9 % (2-9); NEUTROPHILS % (AUTO) 46 % (42-75); PLATELET COUNT 277 x10^3/uL (130-400); RED BLOOD COUNT 4.66 x10^6/uL (3.82-5.3); RED CELL DISTRIBUTION WIDTH 14.5 % (9.6-15.2)
[2021-02-27 01:54] LABS: ALBUMIN 3.5 g/dL (3.4-5.0); ANION GAP 5 mmol/L (5-15); CALCIUM 8.8 mg/dL (8.5-10.1); CHLORIDE 110 mmol/L (98-107); CREATININE 0.97 mg/dL (0.55-1.02)
--- NOTE | 2021-02-27 02:08 | NUR ---
REPORT GIVEN TO AGA VÁZQUEZ
== END 2021-02-27 02:55 | disposition home or self-care (01) ==
LOC: ED 01:45
DX: G40.309 Generalized idiopathic epilepsy and epileptic syndromes, not intractable, without status epilepticus (principal); F17.200 Nicotine dependence, unspecified, uncomplicated; E11.9 Type 2 diabetes mellitus without complications; J44.9 Chronic obstructive pulmonary disease, unspecified; Z90.49 Acquired absence of other specified parts of digestive tract
CPT/HCPCS: 36415; 80048; 82040; 85025; 99283

== ENCOUNTER 2021-03-21 02:01 | Emergency (ER) | payer MEDICAID ==
[~2021-03-21] VITALS: Ht 170.2 cm; Wt 92.5 kg
[2021-03-21 02:03] VITALS: BP 139/85
--- NOTE | 2021-03-21 04:55 | NUR ---
PT PRESENTS TO ER WITH AT BEDSIDE, PT STATES SHE IS HAVING GENERALIZED ABDOMINAL PAIN ASSOCIATED WITH N/V FOR 2 WEEKS NOW
[2021-03-21] MEDS ORDERED: SODIUM CHLORIDE FLUSH 10ML SYR IVF ONE (05:30)
[2021-03-21] MEDS ORDERED: ONDANSETRON 2MG/ML, 2ML IVPush ONE (05:30)
[2021-03-21] MEDS ORDERED: SODIUM CHLORIDE 0.9% 1,000ML IVBOLUS ONE (05:30)
[2021-03-21] MEDS ORDERED: SODIUM CHLORIDE 0.9% 1,000 ML IV ONE (05:30)
[2021-03-21] MEDS ORDERED: FAMOTIDINE 20 MG/2 ML IVPush ONE (05:30)
[2021-03-21] MEDS ORDERED: MORPHINE SULFATE 4 MG/ML, 1ML IVPush PRN (05:30)
[2021-03-21] MEDS ORDERED: ONDANSETRON 2MG/ML, 2ML ONE (05:34)
[2021-03-21] MEDS ORDERED: FAMOTIDINE 20 MG/2 ML ONE (05:35)
[2021-03-21] MEDS ORDERED: MORPHINE SULFATE 4 MG/ML, 1ML ONE (05:35)
--- NOTE | 2021-03-21 05:44 | NUR ---
PT LAYING IN BED, ALL NEEDS IN REACH, CALL LIGHT IN REACH, NAD AT THIS TIME, AT BEDSIDE
[2021-03-21 05:48] LABS: BASOPHILS % (AUTO) 1 % (0-1); EOSINOPHILS % (AUTO) 3 % (1-7); LYMPHOCYTES % (AUTO) 31 % (22-44); MEAN CORPUSCULAR HEMOGLOBIN 30.1 pg (27.0-34.8); MEAN CORPUSCULAR HGB CONC 33.8 g/dL (32.4-35.8); MEAN PLATELET VOLUME 7.6 fL (7.4-10.4); MONOCYTES % (AUTO) 8 % (2-9); NEUTROPHILS % (AUTO) 57 % (42-75); PLATELET COUNT 287 x10^3/uL (130-400); RED BLOOD COUNT 4.58 x10^6/uL (3.82-5.3); RED CELL DISTRIBUTION WIDTH 14.1 % (9.6-15.2)
[2021-03-21 05:55] LABS: ALANINE AMINOTRANSFERASE 64 U/L (12-78); ALBUMIN 3.3 g/dL (3.4-5.0); ANION GAP 8 mmol/L (5-15); CALCIUM 8.9 mg/dL (8.5-10.1); CHLORIDE 110 mmol/L (98-107); CREATININE 0.74 mg/dL (0.55-1.02)
[2021-03-21 05:57] LABS: ALKALINE PHOSPHATASE 119 U/L (45-117); BILIRUBIN,TOTAL 0.5 mg/dL (0.2-1.0); TOTAL PROTEIN 6.7 g/dL (6.4-8.2)
[2021-03-21] MEDS ORDERED: MAALOX/HYOSCYAMINE/LIDOCAINE 45 ML BTL PO ONE (06:30)
[2021-03-21 06:43] LABS: MICROSCOPIC AUTO
== END 2021-03-21 08:17 | disposition home or self-care (01) ==
LOC: ED 05:54
DX: K29.00 Acute gastritis without bleeding (principal); R10.13 Epigastric pain; R11.2 Nausea with vomiting, unspecified; E11.649 Type 2 diabetes mellitus with hypoglycemia without coma; J44.9 Chronic obstructive pulmonary disease, unspecified; G43.909 Migraine, unspecified, not intractable, without status migrainosus; G40.909 Epilepsy, unspecified, not intractable, without status epilepticus; Z90.49 Acquired absence of other specified parts of digestive tract; Z88.0 Allergy status to penicillin; Z79.82 Long term (current) use of aspirin
CPT/HCPCS: 36415; 80053; 81001; 83690; 85025; 87086; 93005; 96361; 96374; 96375; 99284; J2270; J2405; J7030

== ENCOUNTER 2021-04-05 13:28 | Emergency (ER) | payer MEDICAID ==
[~2021-04-05] VITALS: Ht 167.6 cm; Wt 89.5 kg
[2021-04-05 14:06] VITALS: BP 106/62
== END 2021-04-05 14:18 ==
LOC: ED 14:17
DX: H60.12 Cellulitis of left external ear (principal); F15.10 Other stimulant abuse, uncomplicated; E11.9 Type 2 diabetes mellitus without complications
CPT/HCPCS: 99283